=== PATIENT | female | born 1960 | race Hispanic/Latino ===

== ENCOUNTER → 2019-03-18 | Day surgery (SDC) | payer OTHER ==
[~2019-03-18] MED LIST: DEPRESSION MED PO; FENTANYL CITRATE/PF 100MCG/2 ML INJ ONE; HYOSCYAMINE 0.125 MG TAB ONE; LEVOTHYROXINE50 MCG PO; MIDAZOLAM HCL 2 MG/2 ML VIAL ONE; NORCO 7.5-3251 EACH PO
--- OUTSIDE RECORDS SUMMARY | 2019-03-18 08:42 | XMS REPORT | Continuity of Care Document ---
Author Author [employer] Organization [employer] Address Unknown Phone Unavailable Care Team Providers Care Tow Driver Name Role Phone [place] Case Information Exchange Unavailable Unavailable Problems Problem Status Onset Date Classification Date Reported Comments Source Rash Active Problem 12/16/2017 Osmin Talbot Polyarthritis Active Problem 12/16/2017 Osmin Talbot Long-term use of high-risk medication Active Problem 12/16/2017 Osmin Talbot De Quervain's tenosynovitis Active Problem 12/16/2017 Osmin Talbot Fibromyalgia Active Problem 12/16/2017 Osmin Talbot Raised antibody titer Active Problem 12/16/2017 Osmin Talbot Screening for osteoporosis Active Problem 12/16/2017 Osmin Talbot Insomnia Active Problem 03/06/2019 [facility] Vitamin D deficiency Active Problem 03/06/2019 [facility] Depression Active Problem 03/06/2019 [facility] Acquired hypothyroidism Active Problem 03/06/2019 [facility] Positive OPAL Active Problem 03/06/2019 [facility] BMI 34.0-34.9,adult Active Problem 03/06/2019 [facility] Recurrent major depressive disorder, remission status unspecified Active Problem 03/06/2019 [facility] Uses Wolof as primary spoken language Active Problem 03/06/2019 [facility] History of abnormal cervical Pap smear Active Problem 03/06/2019 [facility] Prediabetes Active Problem 03/06/2019 [facility] Inflammatory arthritis Active Problem 03/06/2019 [facility],Osmin Talbot Lupus Active Problem 03/06/2019 [facility],Osmin Talbot Anxiety Active Problem 03/06/2019 [facility] Pain in right leg Active Diagnosis 12/23/2017 [facility] Pain of left leg Active Diagnosis 12/23/2017 [facility] Other fatigue Active Diagnosis 12/23/2017 [facility] Major depressive disorder, single episode, unspecified Active Problem 02/08/2018 [facility] Screening for breast cancer Active Diagnosis 12/23/2017 [facility] Encntr for general adult medical exam w/o abnormal findings Active Diagnosis 12/23/2017 [facility] Screening for colon cancer Active Diagnosis 12/23/2017 [facility] Obstructive sleep apnea Active Problem 03/06/2019 [facility] Breast cancer screening Active Diagnosis 04/17/2018 [facility] BMI 31.0-31.9,adult Active Problem 11/25/2015 [facility] Depression Active Problem 11/25/2015 [facility] Obesity Active Problem 11/25/2015 [facility] Abnormal pap Active Diagnosis 09/11/2014 [facility] Encounter for screening mammogram for malignant neoplasm of breast Active Diagnosis 09/11/2014 [facility] Insomnia Active Problem 11/25/2015 [facility] Special screening for malignant neoplasms, colon Active Diagnosis 09/11/2014 [facility] Hyperlipidemia Active Problem 11/25/2015 [facility] Positive OPAL Active Problem 11/25/2015 [facility] Excessive daytime sleepiness Active Diagnosis 2014 [facility] Prediabetes Active Problem 11/25/2015 [facility] History of abnormal Pap smear Active Problem 11/25/2015 [facility] Anxiety Active Problem 11/25/2015 [facility] Vitamin d deficiency Active Problem 11/25/2015 [facility] Depression screening Active Diagnosis 08/12/2014 [facility] Toe pain, left Active Diagnosis 08/12/2014 [facility] Ibarra's Cyst Active Diagnosis 08/12/2014 [facility] Left knee pain Active Diagnosis 08/12/2014 [facility] Upper respiratory infection Active Diagnosis 01/27/2015 [facility] Sore throat Active Diagnosis 01/27/2015 [facility] Bacterial conjunctivitis of left eye Active Diagnosis 01/27/2015 [facility] Spondyloarthropathy Active Problem 11/25/2015 [facility] Menopause Active Problem 11/25/2015 [facility] Vertigo Active Diagnosis 11/25/2015 [facility] Dizziness Active Diagnosis 11/25/2015 [facility] Menorrhagia Active Diagnosis 11/25/2015 [facility] Encounter for screening mammogram for breast cancer Active Diagnosis 09/03/2015 [facility] Encounter for screening for malignant neoplasm of colon Active Diagnosis 09/03/2015 [facility] PTSD Active 02/13/2019 [facility] Moderate episode of recurrent major depressive disorder Active 02/13/2019 [facility] MDD , recurrent episode, moderate Active 02/13/2019 [facility] Systemic lupus erythematosus, unspecified SLE type, unspecified organ involvement status Active 02/13/2019 [facility] Inflammatory arthritis Active 02/13/2019 [facility] Fatty liver Active 02/13/2019 [facility] High risk medication use Active 02/13/2019 [facility] Long-term use of Plaquenil Active 02/13/2019 [facility] Axillary lymphadenopathy Active 02/13/2019 [facility] BMI 33.0-33.9,adult Active 02/13/2019 [facility] Medication refill Active 02/13/2019 [facility] Urticaria, unspecified Active 02/13/2019 [facility] Bilateral calcific tendinitis of shoulders Active 02/13/2019 [facility] Abnormal chest x-ray Active 02/13/2019 [facility] DDD , lumbar Active 02/13/2019 [facility] Abnormal LFTs Active 02/13/2019 [facility] Sjogren's syndrome with keratoconjunctivitis sicca Active 02/13/2019 [facility] Adjustment disorder with depressed mood Active 02/13/2019 [facility] Dietary counseling Active 02/13/2019 [facility] Exercise counseling Active 02/13/2019 [facility] BMI 34.0-34.9,adult Active 02/13/2019 [facility] Arthralgia of shoulder, unspecified laterality Active 02/13/2019 [facility] Low back pain at multiple sites Active 02/13/2019 [facility] Screening for tuberculosis Active 02/13/2019 [facility] Insomnia, unspecified type Active 02/13/2019 [facility] Patient left without being seen Active 02/13/2019 [facility] Medications Medication Details Route Status Patient Instructions Ordering Provider Order Date Source FLUoxetine (PROZAC) 20 mg capsule Take 1 capsule by mouth daily for 90 days. Oral Active 12/14/2018 [facility] hydrOXYzine (ATARAX) 50 mg tablet Take 1 tablet by mouth at bedtime nightly for 90 days. Oral Active 12/14/2018 [facility] citalopram (CELEXA) 40 mg tablet Take 1 tablet by mouth daily for 90 days. Oral No Longer Active 11/02/2018 [facility] traZODone (DESYREL) 50 mg tablet Take 50 mg by mouth at bedtime nightly. Oral No Longer Active 2018 [facility] QUEtiapine (SEROQUEL) 50 mg tablet Take 1 tablet by mouth at bedtime nightly for 90 days. Oral No Longer Active 2018 [facility] Citalopram 20 Mg Tablet Take 20 mg by mouth daily. Oral No Longer Active 07/20/2018 [facility] Citalopram 40 Mg Tablet Celexa 40 Mg Tablet Take 1 tablet by mouth daily for 60 days. Oral Active 07/20/2018 [facility] Trazodone 100 Mg Tablet Take 2 tablets by mouth at bedtime nightly for 60 days. Oral Active 07/20/2018 [facility] citalopram (CELEXA) 20 mg tablet Take 20 mg by mouth daily. Oral No Longer Active 07/20/2018 [facility] citalopram (CELEXA) 40 mg tablet Take 1 tablet by mouth daily for 60 days. Oral No Longer Active 07/20/2018 [facility] traZODone (DESYREL) 100 mg tablet Take 2 tablets by mouth at bedtime nightly for 60 days. Oral No Longer Active 07/20/2018 [facility] Methotrexate Sodium 2.5 Mg Tablet Take 1 tablet by mouth weekly. Oral Active 07/19/2018 [facility] methotrexate (RHEUMATREX) 2.5 mg tablet Take 1 tablet by mouth weekly. Oral No Longer Active 07/19/2018 [facility] Hydroxychloroquine 200 Mg Tablet Take 1 tablet by mouth daily. Oral Active 06/25/2018 [facility] hydroxychloroquine (PLAQUENIL) 200 mg tablet Take 1 tablet by mouth daily. Oral Active 06/25/2018 [facility] Metronidazole 500 Mg Tablet take 1 tablet (500 mg) by oral route every 8 hours Oral No Longer Active 04/27/2018 [facility] Ciprofloxacin 500 Mg Tablet take 1 tablet (500 mg) by oral route every 12 hours Oral No Longer Active 04/27/2018 [facility] Methotrexate Sodium 2.5 Mg Tablet Take 6 tablets by mouth weekly. Oral No Longer Active 04/27/2018 [facility] Folic Acid 1 Mg Tablet Take 1 tablet by mouth daily. Oral Active 04/27/2018 [facility] Cyclobenzaprine 5 Mg Tablet Take 1 tablet by mouth nightly at bedtime as needed for Muscle Spasms. Oral Active 04/27/2018 [facility] Naproxen 250 Mg Tablet Take 1 tablet by mouth 2 times daily (with meals). Oral Active 04/27/2018 [facility] METRONIDAZOLE 500 MG TAB take 1 tablet (500 mg) by oral route every 8 hours Oral No Longer Active 04/27/2018 [facility] CIPROFLOXACIN 500 MG TAB take 1 tablet (500 mg) by oral route every 12 hours Oral No Longer Active 04/27/2018 [facility] methotrexate (RHEUMATREX) 2.5 mg tablet Take 6 tablets by mouth weekly. Oral No Longer Active 04/27/2018 [facility] folic acid (FOLVITE) 1 mg tablet Take 1 tablet by mouth daily. Oral Active 04/27/2018 [facility] Cyclobenzaprine (FLEXERIL) 5 mg tablet Take 1 tablet by mouth nightly at bedtime as needed for Muscle Spasms. Oral Active 04/27/2018 [facility] naproxen (NAPROSYN) 250 mg tablet Take 1 tablet by mouth 2 times daily (with meals). Oral Active 04/27/2018 [facility] MetFORMIN HCl ER 1 tablet with evening meal Orally Active 750 MG Orally qd LAST REFILL, NEEDS TO BE SEEN [place] 04/09/2018 [facility] Amitriptyline 25 Mg Tablet Take 2 tablets by mouth at bedtime nightly. Oral No Longer Active 02/15/2018 [facility] amitriptyline (ELAVIL) 25 mg tablet Take 2 tablets by mouth at bedtime nightly. Oral No Longer Active 02/15/2018 [facility] Levothyroxine 50 McG Tablet Active 01/17/2018 [facility] levothyroxine (SYNTHROID) 50 mcg tablet Active 01/17/2018 [facility] Vitamin D (Ergocalciferol) 1 capsule Orally Active 63622 UNIT Orally once per week [employer] 01/16/2018 [facility] Vitamin D (Ergocalciferol) 1 capsule Orally Active 57251 UNIT Orally once per week [employer] 01/16/2018 [facility] Synthroid 1 tablet on an empty stomach in the morning Orally Active 50 MCG Orally qd LAST REFILL, NEEDS BLOOD WORK [employer] 01/16/2018 [facility] Citalopram Hydrobromide 1 tablet Orally Active 10 mg Orally Once a day [employer] 01/16/2018 [facility] Citalopram Hydrobromide 1 tablet Orally Active 20 MG Orally Once a day [place] 01/16/2018 [facility] Trazodone HCl 2 tablets Orally Active 50 mg Orally Once a day [employer] 12/19/2017 [facility] Trazodone HCl 1 tablet Orally Active 50 mg Orally once every night [employer] 12/19/2017 [facility] HydrOXYzine HCl 1 tablet as needed Orally Active 50 mg Orally at hour of sleep [employer] 08/31/2015 [facility] HydrOXYzine HCl 1 tablet as needed Orally Active 50 mg Orally at hour of sleep [facility] 08/31/2015 [facility] Ceftin 1 tablet Orally Active 500 mg Orally Twice a day [facility] 01/23/2015 [facility] Bromfed DM 10 ml as needed Orally Active 30-2-10 MG/5ML Orally every 6 hrs [facility] 01/23/2015 [facility] Polytrim 1 drop into affected eye Ophthalmic Active 58282-6.1 UNIT/ML-% Ophthalmic Six times a day [facility] 01/23/2015 [facility] Alprazolam 1 tablet Orally Active 0.5 MG Orally QHS [facility] 09/12/2014 [facility] Vitamin D (Ergocalciferol) 1 capsule Orally Active 38915 UNIT Orally once per week [facility] 09/12/2014 [facility] Medrol ([place]) as directed Orally Active 4 mg Orally as directed ~~[facility] 07/03/2014 [facility] Celebrex 1 capsule Orally Active 200 MG Orally Once a day ~~[facility] 07/02/2014 [facility] Prevacid 30 Mg Capsule,Delayed Release take 1 capsule (30 mg) by oral route once daily before a meal Oral No Longer Active 03/16/2010 [facility] PREVACID 30 MG CAP take 1 capsule (30 mg) by oral route once daily before a meal Oral No Longer Active 03/16/2010 [facility] Venlafaxine HCl ER 1 capsule with food Orally Active 75 mg Orally Once a day [facility] Mirtazapine 1 tablet before bedtime in the evening NA Active 45 [facility] Melatonin 1 capsule at bedtime as needed with food Orally Active 3 MG Orally [facility] Amitriptyline HCl 2 tablet Orally Active 25 MG Orally Once a day [facility] Citalopram Hydrobromide 1 tablet orally Active 20 mg orally Once a day [facility] Citalopram Hydrobromide TAKE 1 TABLET BY MOUTH EVERY DAY NA Active 20 MG [facility] Venlafaxine HCl ER 1 capsule with food Orally Active 75 mg Orally Once a day [facility] IBU 1 tablet Orally No Longer Active 800 MG Orally Three times a day [facility] Folic Acid 1 tablet Orally Active 1 MG Orally Once a day [facility] Methotrexate 5 capsules Orally Active 2.5 MG Orally every monday [facility] [place] 1 tablet as needed Orally Active 5-325 MG Orally every 6 hrs [facility] Melatonin 1 capsule at bedtime as needed with food Orally Active [address] [facility] Trazodone 50 Mg Tablet Take 50 mg by mouth at bedtime nightly. Oral Active [facility] Allergies, Adverse Reactions, Alerts Substance Category Reaction Severity Reaction type Status Date Reported Comments Source N.K.D.A. Adverse Reaction Info Not Available Adverse Reaction Active 04/09/2018 [facility] Immunizations No Data Provided for This Section Results Order Name Results Value Reference Range Date Interpretation Comments Source ANTI DSDNA BY EM Anti dsDNA Negative NEG Titer 09/19/2018 [facility] SED RATE Sed Rate 43 <30 mm/Hr 09/18/2018 [facility] SED RATE Lab Interpretation Abnormal 09/18/2018 [facility] C-REACTIVE PROT C-Reactive Prot 0.8 <10 09/18/2018 [facility] COMPLEMENT C3 Complement C3 183.1 87 - 200 09/18/2018 [facility] COMPLEMENT C4 Complement C4 47.9 19 - 52 09/18/2018 [facility] LIVER PROFILE <td ID="[id number]">Protein, Total, Serum</td><td><span style="flagData">8.6</span><span style="flagData"> (H)</span></td><td>6.0 - 8.3 g/dL</td><td> MAIN-STATION 1</td><td ID="[id number]"/> 8.6 6 - 8.3 09/18/2018 [facility] LIVER PROFILE <td ID="[id number]">Albumin</td><td>4.4</td><td>3.7 - 5.3 g/dL</td><td>BT MAIN-STATION 1</td><td ID="[id number]"/> 4.4 3.7 - 5.3 09/18/2018 [facility] LIVER PROFILE <td ID="[id number]">Bilirubin, Total</td><td>0.3</td><td>0.2 - 1.2 mg/dL</td><td>BT MAIN-STATION 1</td><td ID="[id number]"/> 0.3 0.2 - 1.2 09/18/2018 [facility] LIVER PROFILE <td ID="[id number]">Alkaline Phosphatase, S</td><td>104</td><td>34 - 104 U/L</td><td>BT MAIN-STATION 1</td><td ID="[id number]"/> 104 34 - 104 09/18/2018 [facility] LIVER PROFILE <td ID="[id number]">AST (SGOT)</td><td>21</td><td>13 - 39 U/L</td><td>BT MAIN-STATION 1</td><td ID="[id number]"/> 21 13 - 39 09/18/2018 [facility] LIVER PROFILE <td ID="[id number]">ALT</td><td>24</td><td>7 - 52 U/L</td><td>BT MAIN-STATION 1</td><td ID="[id number]"/> 24 7 - 52 09/18/2018 [facility] LIVER PROFILE <td ID="[id number]">D Bilirubin</td><td>0.1</td><td>0.0 - 0.2 mg/dL</td><td>BT MAIN-STATION 1</td><td ID="[id number]"/> 0.1 0 - 0.2 09/18/2018 [facility] LIVER PROFILE Lab Interpretation Abnormal 09/18/2018 [facility] T PROT/CREA RATIO,UR Creatinine, Urine 96.5 20 - 320 09/17/2018 [facility] T PROT/CREA RATIO,UR T Prot, Ur 0.25 09/17/2018 [facility] T PROT/CREA RATIO,UR T Prot/Crea Ratio,Ur 0.26 0.0 - 0.5 09/17/2018 [facility] SJOGREN'S AB Anti SS/A >8.0 Reference range: 0.0 to 0.9 Unit: AI 07/06/2018 [facility] SJOGREN'S AB Anti SS/B >8.0 Reference range: 0.0 to 0.9 Unit: AI 07/06/2018 [facility] ANTI DSDNA BY CRITHIDIA Anti dsDNA Negative NEG Titer 07/06/2018 [facility] C-REACTIVE PROT C-Reactive Prot 0.7 <10 07/05/2018 [facility] COMPLEMENT C3 Complement C3 175.4 87 - 200 07/05/2018 [facility] COMPLEMENT C4 Complement C4 41.0 19 - 52 07/05/2018 [facility] RA FACTOR RA Factor 12 <14 IU/mL 07/05/2018 [facility] CBC/DIFF <td ID="[id number]">WBC</td><td>7.2</td><td>4.5 - 11.0 K/uL</td><td>BT MAIN-STATION 2</td><td ID="[id number]"/> 7.2 4.5 - 11 07/05/2018 [facility] CBC/DIFF <td ID="[id number]">RBC</td><td>4.43</td><td>4.20 - 5.40 M/uL</td><td>BT MAIN-STATION 2</td><td ID="[id number]"/> 4.43 4.20 - 5.40 07/05/2018 [facility] CBC/DIFF <td ID="[id number]">Hemoglobin</td><td>13.2</td><td>12.0 - 16.0 g/dL</td><td>BT MAIN-STATION 2</td><td ID="[id number]"/> 13.2 12 - 16 07/05/2018 [facility] CBC/DIFF <td ID="[id number]">Hematocrit</td><td>39.4</td><td>37.0 - 47.0 %</td><td>BT MAIN-STATION 2</td><td ID="[id number]"/> 39.4 37 - 47 07/05/2018 [facility] CBC/DIFF <td ID="[id number]">MCV</td><td>89</td><td>82 - 92 fL</td><td>BT MAIN-STATION 2</td><td ID="[id number]"/> 89 82 - 92 07/05/2018 [facility] CBC/DIFF <td ID="[id number]">MCH</td><td>29.8</td><td>27.0 - 32.0 pg</td><td>BT MAIN-STATION 2</td><td ID="[id number]"/> 29.8 27 - 32 07/05/2018 [facility] CBC/DIFF <td ID="[id number]">MCHC</td><td>33.5</td><td>32.0 - 36.0 g/dL</td><td>BT MAIN-STATION 2</td><td ID="[id number]"/> 33.5 32 - 36 07/05/2018 [facility] CBC/DIFF <td ID="[id number]">RDW</td><td>45.7</td><td>36.4 - 46.3 fL</td><td>BT MAIN-STATION 2</td><td ID="[id number]"/> 45.7 36.4 - 46.3 07/05/2018 [facility] CBC/DIFF <td ID="[id number]">Platelets</td><td>244</td><td>150 - 400 K/uL</td><td>BT MAIN-STATION 2</td><td ID="[id number]"/> 244 150 - 400 07/05/2018 [facility] CBC/DIFF <td ID="[id number]">Mean Platelet Volume</td><td>11.6</td><td>9.4 - 12.4 fL</td><td>BT MAIN-STATION 2</td><td ID="[id number]"/> 11.6 9.4 - 12.4 07/05/2018 [facility] CBC/DIFF Percent NRBC 0.0 07/05/2018 [facility] CBC/DIFF Absolute NRBC 0.00 07/05/2018 [facility] CBC/DIFF <td ID="[id number]">Neutrophils</td><td>70.0</td><td>34.0 - 70.0 %</td><td>BT MAIN-STATION 2</td><td ID="[id number]"/> 70.0 34 - 70 07/05/2018 [facility] CBC/DIFF <td ID="[id number]">Lymphs</td><td>22.7</td><td>20.0 - 50.0 %</td><td>BT MAIN-STATION 2</td><td ID="[id number]"/> 22.7 20 - 50 07/05/2018 [facility] CBC/DIFF <td ID="[id number]">Monocytes</td><td>5.3</td><td>5.0 - 12.0 %</td><td>BT MAIN-STATION 2</td><td ID="[id number]"/> 5.3 5 - 12 07/05/2018 [facility] CBC/DIFF <td ID="[id number]">Eos</td><td>1.5</td><td>0.7 - 5.0 %</td><td>BT MAIN-STATION 2</td><td ID="[id number]"/> 1.5 0.7 - 5 07/05/2018 [facility] CBC/DIFF <td ID="[id number]">Basos</td><td>0.4</td><td>0.1 - 1.2 %</td><td>BT MAIN-STATION 2</td><td ID="[id number]"/> 0.4 0.1 - 1.2 07/05/2018 [facility] CBC/DIFF Immature Granulocytes 0.1 0.0 - 0.5 07/05/2018 [facility] CBC/DIFF Neutrophils (Absolute) 5.05 1.56 - 6.13 07/05/2018 [facility] CBC/DIFF Lymphs (Absolute) 1.64 1.18 - 3.74 07/05/2018 [facility] CBC/DIFF Monocytes(Absolute) 0.38 0.24 - 0.36 07/05/2018 [facility] CBC/DIFF Eos (Absolute) 0.11 0.04 - 0.36 07/05/2018 [facility] CBC/DIFF Baso (Absolute) 0.03 0.01 - 0.08 07/05/2018 [facility] CBC/DIFF Immature Grans (Abs) 0.01 0 - 0.03 07/05/2018 [facility] CBC/DIFF Lab Interpretation Abnormal 07/05/2018 [facility] LIVER PROFILE T Protein 8.2 6 - 8.3 07/05/2018 [facility] LIVER PROFILE Albumin 4.3 3.7 - 5.3 07/05/2018 [facility] LIVER PROFILE T Bilirubin 0.5 0.2 - 1.2 07/05/2018 [facility] LIVER PROFILE Alk Phos 111 34 - 104 07/05/2018 [facility] LIVER PROFILE AST 27 13 - 39 07/05/2018 [facility] LIVER PROFILE ALT 26 7 - 52 07/05/2018 [facility] LIVER PROFILE D Bilirubin 0.1 0 - 0.2 07/05/2018 [facility] LIVER PROFILE Lab Interpretation Abnormal 07/05/2018 [facility] UREA NITROGEN/CREA <td ID="[id number]">BUN</td><td>18</td><td>7 - 25 mg/dL</td><td>BT MAIN-STATION 1</td><td ID="[id number]"/> 18 7 - 25 07/05/2018 [facility] UREA NITROGEN/CREA <td ID="[id number]">Creatinine</td><td>0.60</td><td>0.6 - 1.2 mg/dL</td><td>BT MAIN-STATION 1</td><td ID="[id number]"/> 0.60 0.6 - 1.2 07/05/2018 [facility] UREA NITROGEN/CREA GFR, Estimated >60 mL/min/1.73 m2 07/05/2018 [facility] UREA NITROGEN/CREA eGFR If Africn Am >60 mL/min/1.73 m2 07/05/2018 [facility] CCP IGG ABS CCP Abs IgG/IgA 9 Reference range: 0 to 19 Unit: units (note) Negative 59 05/07/2018 [facility] OPAL OPAL Screen Positive NEG 05/05/2018 [facility] OPAL OPAL Pattern SSA/Ro present, not titered Pattern 05/05/2018 [facility] OPAL Lab Interpretation Abnormal 05/05/2018 [facility] VIT D, 25-HYDROXY Vit D, 25-Hydroxy 34.0 30 - 100 05/04/2018 Vitamin D deficiency has been defined by the [place] of [employer] and
Endocrine Society guideline as a level of serum 25-OH Vitamin D less than 20
ng/mL. The Endocrine Society further defines Vitamin D insufficiency as a
level between 21 and 29 ng/mL and sufficiency as a level between 30 and 100
ng/mL.

[facility] HEPATITIS PANEL <td ID="[id number]">HCV IgG</td><td>Negative</td><td>NEG</td><td>BT MAIN-STATION 3</td><td ID="[id number]"/> Negative NEG 05/03/2018 [facility] HEPATITIS PANEL <td ID="[id number]">HBsAg</td><td>Negative</td><td>NEG</td><td>BT MAIN-STATION 3</td><td ID="[id number]"/> Negative NEG 05/03/2018 [facility] HEPATITIS PANEL <td ID="[id number]">HAV, IgM</td><td>Negative</td><td>NEG</td><td>BT MAIN-STATION 3</td><td ID="[id number]"/> Negative NEG 05/03/2018 [facility] HEPATITIS PANEL <td ID="[id number]">HBcAb, IgM</td><td>Negative</td><td>NEG</td><td>BT MAIN-STATION 3</td><td ID="[id number]"/> Negative NEG 05/03/2018 [facility] T PROT/CREA RATIO,UR Creatinine, Ur 114.2 20 - 320 05/03/2018 [facility] T PROT/CREA RATIO,UR T Prot, Ur 0.09 05/03/2018 [facility] T PROT/CREA RATIO,UR T Prot/Crea Ratio,Ur 0.08 0.0 - 0.5 05/03/2018 [facility] COMPREHENSIVE METABOLIC PANEL(DBIL NOT INCLUDED) <td ID="[id number]">Albumin</td><td>4.6</td><td>3.7 - 5.3 g/dL</td><td>BT MAIN-STATION 1</td><td ID="[id number]"/> 4.6 3.7 - 5.3 05/03/2018 [facility] COMPREHENSIVE METABOLIC PANEL(DBIL NOT INCLUDED) <td ID="[id number]">Calcium</td><td>9.0</td><td>8.6 - 10.3 mg/dL</td><td>BT MAIN-STATION 1</td><td ID="[id number]"/> 9.0 8.6 - 10.3 05/03/2018 [facility] COMPREHENSIVE METABOLIC PANEL(DBIL NOT INCLUDED) <td ID="[id number]">CO2</td><td>31</td><td>21 - 31 mmol/L</td><td>BT MAIN-STATION 1</td><td ID="[id number]"/> 31 21 - 31 05/03/2018 [facility] COMPREHENSIVE METABOLIC PANEL(DBIL NOT INCLUDED) <td ID="[id number]">Chloride</td><td>99</td><td>98 - 107 mmol/L</td><td>BT MAIN-STATION 1</td><td ID="[id number]"/> 99 98 - 107 05/03/2018 [facility] COMPREHENSIVE METABOLIC PANEL(DBIL NOT INCLUDED) <td ID="[id number]">Creatinine</td><td><span style="flagData">0.50</span><span style="flagData"> (L)</span></td><td>0.6 - 1.2 mg/dL</td><td>BT MAIN-STATION 1</td><td ID="[id number]"/> 0.50 0.6 - 1.2 05/03/2018 [facility] COMPREHENSIVE METABOLIC PANEL(DBIL NOT INCLUDED) <td ID="[id number]">Glucose</td><td>84</td><td>70 - 110 mg/dL</td><td>BT MAIN-STATION 1</td><td ID="[id number]"/> 84 70 - 110 05/03/2018 [facility] COMPREHENSIVE METABOLIC PANEL(DBIL NOT INCLUDED) <td ID="[id number]">Alkaline Phosphatase, S</td><td>90</td><td>34 - 104 U/L</td><td>BT MAIN-STATION 1</td><td ID="[id number]"/> 90 34 - 104 05/03/2018 [facility] COMPREHENSIVE METABOLIC PANEL(DBIL NOT INCLUDED) <td ID="[id number]">Potassium</td><td>4.6</td><td>3.5 - 5.1 mmol/L</td><td>BT MAIN-STATION 1</td><td ID="[id number]"/> 4.6 3.5 - 5.1 05/03/2018 [facility] COMPREHENSIVE METABOLIC PANEL(DBIL NOT INCLUDED) <td ID="[id number]">Sodium</td><td>139</td><td>136 - 145 mmol/L</td><td>BT MAIN-STATION 1</td><td ID="[id number]"/> 139 136 - 145 05/03/2018 [facility] COMPREHENSIVE METABOLIC PANEL(DBIL NOT INCLUDED) <td ID="[id number]">ALT</td><td><span style="flagData">66</span><span style="flagData"> (H)</span></td><td>7 - 52 U/L</td><td>BT MAIN-STATION 1</td><td ID="[id number]"/> 66 7 - 52 05/03/2018 [facility] COMPREHENSIVE METABOLIC PANEL(DBIL NOT INCLUDED) <td ID="[id number]">AST (SGOT)</td><td><span style="flagData">55</span><span style="flagData"> (H)</span></td><td>13 - 39 U/L</td><td> MAIN-STATION 1</td><td ID="[id number]"/> 55 13 - 39 05/03/2018 [facility] COMPREHENSIVE METABOLIC PANEL(DBIL NOT INCLUDED) <td ID="[id number]">BUN</td><td>7</td><td>7 - 25 mg/dL</td><td> MAIN-STATION 1</td><td ID="[id number]"/> 7 7 - 25 05/03/2018 [facility] COMPREHENSIVE METABOLIC PANEL(DBIL NOT INCLUDED) <td ID="[id number]">Bilirubin, Total</td><td>0.6</td><td>0.2 - 1.2 mg/dL</td><td> MAIN-STATION 1</td><td ID="[id number]"/> 0.6 0.2 - 1.2 05/03/2018 [facility] COMPREHENSIVE METABOLIC PANEL(DBIL NOT INCLUDED) <td ID="[id number]">Protein, Total, Serum</td><td>8.1</td><td>6.0 - 8.3 g/dL</td><td> MAINSTATION 1</td><td ID="[id number]"/> 8.1 6 - 8.3 05/03/2018 [facility] COMPREHENSIVE METABOLIC PANEL(DBIL NOT INCLUDED) GFR, Estimated >60 mL/min/1.73 m2 05/03/2018 [facility] COMPREHENSIVE METABOLIC PANEL(DBIL NOT INCLUDED) eGFR If Africn Am >60 mL/min/1.73 m2 05/03/2018 [facility] COMPREHENSIVE METABOLIC PANEL(DBIL NOT INCLUDED) Anion Gap 9 05/03/2018 [facility] COMPREHENSIVE METABOLIC PANEL(DBIL NOT INCLUDED) Lab Interpretation Abnormal 05/03/2018 [facility] TSH <td ID="[id number]">TSH</td><td>1.87</td><td>0.57 - 3.74 uIU/mL</td><td>BT MAIN-STATION 1</td><td ID="[id number]"/> 1.87 0.57 - 3.74 03/30/2018 [facility] Pathology Reports No Data Provided for This Section Diagnostic Reports Report Value Date Source CT CHEST W CONTRAST IMPRESSION: 1.Lungs are clear.2.Nonspecific mildly enlarged left axillary lymph nodes.3.Hepatic steatosis. Signed By: Pierce Crews M.D., 07/23/2018 10:38 AM EXAM:CT CHEST W CONTRAST DATE: 10:02 AM INDICATION: sle with abnormal chest x ray ADDITIONAL INFORMATION:None. TECHNIQUE: Post IV contrast CT chest acquisition with sagittal andcoronal reformats and axial MIPPED images rendered. COMPARISON: Chest x-ray 05/03/2018 DISCUSSION: Visualized lower neck. Unremarkable. Thyroid.The visible portions are unremarkable. Aorta.No evidence of aortic aneurysm or dissection. Mild aorticatherosclerotic calcifications. Pulmonary arteries.Pulmonary arteries are grossly unremarkable. Trachea and proximal airways.Trachea and proximal airways are patent. Lungs. Unremarkable. Thoracic lymph nodes.No adenopathy is seen. Nonspecific mildlyenlarged left axillary lymph nodes measuring up to 1.2 cm. Visualized subdiaphragmatic structures.Hepatic steatosis. Soft tissues.Unremarkable. Regional Skeleton.No lytic or blastic lesions. Interface, Rad/Mammog In - 07/23/2018 10:43 AM DIRECTOR PROSPECT EXAM: CT CHEST W CONTRAST DATE: 07/23/2018 10:02 AM INDICATION: sle with abnormal chest x ray ADDITIONAL INFORMATION:None. TECHNIQUE: Post IV contrast CT chest acquisition with sagittal and coronal reformats and axial MIPPED images rendered. COMPARISON: Chest x-ray 05/03/2018 DISCUSSION: Visualized lower neck. Unremarkable. Thyroid. The visible portions are unremarkable. Aorta.No evidence of aortic aneurysm or dissection. Mild aortic atherosclerotic calcifications. Pulmonary arteries.Pulmonary arteries are grossly unremarkable. Trachea and proximal airways.Trachea and proximal airways are patent. Lungs. Unremarkable. Thoracic lymph nodes. No adenopathy is seen. Nonspecific mildly enlarged left axillary lymph nodes measuring up to 1.2 cm. Visualized subdiaphragmatic structures. Hepatic steatosis. Soft tissues. Unremarkable. Regional Skeleton. No lytic or blastic lesions. IMPRESSION IMPRESSION: 1. Lungs are clear. 2. Nonspecific mildly enlarged left axillary lymph nodes. 3. Hepatic steatosis. Signed By: Pierce Crews M.D., 07/23/2018 10:38 AM 07/23/2018 [facility] XRAY SHOULDER 2 VIEWS MIN IMPRESSION: 1.No acute radiographic abnormality.2.Calcific tendinopathy of the rotator cuff. Dictated By: Radha Keating MD, 05/03/2018 11:40 AM I have reviewed the study and agree with the findings in this report. Signed By: Rafael Baker DO, 05/03/2018 2:54 PM EXAM: RIGHT XRAY SHOULDER 2 VIEWS MIN CLINICAL INDICATION:pain COMPARISON: None. DISCUSSION:No fracture or dislocation. Mild degenerative changes of the shoulder and acromioclavicular joint.Calcific tendinopathy the rotator cuff. Interface, Rad/Mammog In - 05/03/2018 2:59 PM CDTEXAM: RIGHT XRAY SHOULDER 2 VIEWS MIN CLINICAL INDICATION: pain COMPARISON: None. DISCUSSION: No fracture or dislocation. Mild degenerative changes of the shoulder and acromioclavicular joint. Calcific tendinopathy the rotator cuff. IMPRESSION IMPRESSION: 1. No acute radiographic abnormality. 2. Calcific tendinopathy of the rotator cuff. Dictated By: Radha Keating MD, 05/03/2018 11:40 AM I have reviewed the study and agree with the findings in this report. Signed By: Rafael Baker DO, 05/03/2018 2:54 PM 05/03/2018 [facility] XRAY SPINE LUMBOSACRAL AP-LAT IMPRESSION:1.No acute radiographic abnormality. 2.Mild degenerative changes at L5-S1. Dictated By: Radha Keating MD, 05/03/2018 11:38 AM I have reviewed the study and agree with the findings in this report. Signed By: Rafael Baker DO, 05/03/2018 2:54 PM Lumbar Spine Radiographs - 3 view(s) HISTORY:back pain COMPARISON: None DISCUSSION:Bone:Osseous structures are partially obscured by stool and bowel gas .Five nonrib-bearing lumbar vertebral bodies.Normal alignment.No displaced fracture or compression deformity. Discs:Mild disc space narrowing at L5-S1. Joints:Mild degenerative changes of the L5-S1 facets. Interface, Rad/Mammog In - 05/03/2018 2:59 PM CDTLumbar Spine Radiographs - 3 view(s) HISTORY: back pain COMPARISON: None DISCUSSION: Bone: Osseous structures are partially obscured by stool and bowel gas. Five nonrib-bearing lumbar vertebral bodies. Normal alignment. No displaced fracture or compression deformity. Discs: Mild disc space narrowing at L5-S1. Joints: Mild degenerative changes of the L5-S1 facets. IMPRESSION IMPRESSION: 1. No acute radiographic abnormality. 2. Mild degenerative changes at L5-S1. Dictated By: Radha Keating MD, 05/03/2018 11:38 AM I have reviewed the study and agree with the findings in this report. Signed By: Rafael Baker DO, 05/03/2018 2:54 PM 05/03/2018 [facility] XRAY CHEST 2 VIEWS IMPRESSION: 1.Persistent mild right medial infrahilar opacities, likelyatelectasis/scarring.2.No consolidations, cavitary lesions, pleural effusions. CT could beobtained for further evaluation if indicated. Dictated By: Tay Paul MD, 05/03/2018 11:45 AM I have reviewed the study and agree with the findings in this report. Signed By: Jose Negron MD, 05/03/2018 11:46 AM EXAMINATION:XRAY CHEST 2 VIEWS INDICATION: screen tb COMPARISON:06/24/2012 FINDINGS: Devices, Lines, and Tubes: None. Heart and Mediastinum: Unremarkable. Lungs and Pleura: Persistent mild infrahilar opacities in the rightmedial lung. Few bilateral scattered calcified granulomas, the greatestis noted to be in the left upper lung. No pneumothoraces. Bones and Soft Tissues: Moderate degenerative changes of the superiorcostochondral joints bilaterally. Moderate anterior osteophytosis of themid thoracic spine. Interface, Rad/Mammog In - 05/03/2018 11:52 AM CDTEXAMINATION: XRAY CHEST 2 VIEWS INDICATION: screen tb COMPARISON: 06/24/2012 FINDINGS: Devices, Lines, and Tubes: None. Heart and Mediastinum: Unremarkable. Lungs and Pleura: Persistent mild infrahilar opacities in the right medial lung. Few bilateral scattered calcified granulomas, the greatest is noted to be in the left upper lung. No pneumothoraces. Bones and Soft Tissues: Moderate degenerative changes of the superior costochondral joints bilaterally. Moderate anterior osteophytosis of the mid thoracic spine. IMPRESSION IMPRESSION: 1. Persistent mild right medial infrahilar opacities, likely atelectasis/scarring. 2. No consolidations, cavitary lesions, pleural effusions. CT could be obtained for further evaluation if indicated. Dictated By: Tay Paul MD, 05/03/2018 11:45 AM I have reviewed the study and agree with the findings in this report. Signed By: Jose Negron MD, 05/03/2018 11:46 AM 05/03/2018 [facility] Consultation Notes No Data Provided for This Section Discharge Summaries No Data Provided for This Section History and Physicals No Data Provided for This Section Vital Signs Vital Sign Value Date Comments Source Systolic (mm Hg) 99 12/14/2018 [facility] Diastolic (mm Hg) 50 12/14/2018 [facility] Heart Rate 56 12/14/2018 [facility] Temperature Oral (F) 36.78 Nataliia 12/14/2018 [facility] Respitory Rate 18 12/14/2018 [facility] Height 154.9 cm 12/14/2018 [facility] Weight 86.637 12/14/2018 [facility] Systolic (mm Hg) 99 07/20/2018 [facility] Diastolic (mm Hg) 46 07/20/2018 [facility] Heart Rate 58 07/20/2018 [facility] Temperature Oral (F) 36.83 Nataliia 07/20/2018 [facility] Respitory Rate 18 07/20/2018 [facility] Height 154.9 cm 07/20/2018 [facility] Weight 78.019 07/20/2018 [facility] BMI Calculated 32.50 07/20/2018 [facility] Weight 185 04/09/2018 [facility] Height 61 04/09/2018 [facility] Temperature Oral (F) 98.4 F 04/09/2018 [facility] Heart Rate 53 04/09/2018 [facility] Diastolic (mm Hg) 62 04/09/2018 [facility] Systolic (mm Hg) 96 04/09/2018 [facility] Weight 178 02/22/2018 [facility] Height 61 02/22/2018 [facility] Heart Rate 56 02/22/2018 [facility] Diastolic (mm Hg) 60 02/22/2018 [facility] Systolic (mm Hg) 98 02/22/2018 [facility] Weight 179 01/16/2018 [facility] Height 61 01/16/2018 [facility] Temperature Oral (F) 98.2 F 01/16/2018 [facility] Heart Rate 59 01/16/2018 [facility] Diastolic (mm Hg) 58 01/16/2018 [facility] Systolic (mm Hg) 96 01/16/2018 [facility] Weight 173 12/19/2017 [facility] Height 61 12/19/2017 [facility] Temperature Oral (F) 98.1 F 12/19/2017 [facility] Heart Rate 55 12/19/2017 [facility] Diastolic (mm Hg) 62 12/19/2017 [facility] Systolic (mm Hg) 118 12/19/2017 [facility] Weight 164 11/23/2015 [facility] Height 61 11/23/2015 [facility] Temperature Oral (F) 98.0 F 11/23/2015 [facility] Heart Rate 60 11/23/2015 [facility] Diastolic (mm Hg) 60 11/23/2015 [facility] Systolic (mm Hg) 112 11/23/2015 [facility] Weight 159 09/02/2015 [facility] Height 61 09/02/2015 [facility] Heart Rate 64 09/02/2015 [facility] Diastolic (mm Hg) 60 09/02/2015 [facility] Systolic (mm Hg) 102 09/02/2015 [facility] Weight 160 08/31/2015 [facility] Height 61 08/31/2015 [facility] Heart Rate 63 08/31/2015 [facility] Diastolic (mm Hg) 58 08/31/2015 [facility] Systolic (mm Hg) 98 08/31/2015 [facility] Weight 162 01/23/2015 [facility] Height 61 01/23/2015 [facility] Heart Rate 60 01/23/2015 [facility] Diastolic (mm Hg) 64 01/23/2015 [facility] Systolic (mm Hg) 110 01/23/2015 [facility] Weight 168 09/12/2014 [facility] Height 61 09/12/2014 [facility] Heart Rate 60 09/12/2014 [facility] Diastolic (mm Hg) 62 09/12/2014 [facility] Systolic (mm Hg) 100 09/12/2014 [facility] Weight 169 09/01/2014 [facility] Height 61 09/01/2014 [facility] Heart Rate 58 09/01/2014 [facility] Diastolic (mm Hg) 50 09/01/2014 [facility] Systolic (mm Hg) 98 09/01/2014 [facility] Weight 165 07/02/2014 [facility] Height 61 07/02/2014 [facility] Heart Rate 62 07/02/2014 [facility] Diastolic (mm Hg) 60 07/02/2014 [facility] Systolic (mm Hg) 124 07/02/2014 [facility] Encounters Location Location Details Encounter Type Encounter Number Reason For Visit Attending Provider ADM Date DC Date Status Source [facility] LEFT KNEE PAIN/ SWELLLING [id number] 07/02/2014 07/02/2014 [facility] LEFT KNEE PAIN/ SWELLLING [id number] 07/02/2014 07/02/2014 [facility] LEFT KNEE PAIN/ SWELLLING [id number] 07/02/2014 07/02/2014 [facility] LEFT KNEE PAIN/ SWELLLING [id number] 07/02/2014 07/02/2014 [facility] LEFT KNEE PAIN/ SWELLLING [id number] 07/02/2014 07/02/2014 [facility] LEFT KNEE PAIN/ SWELLLING [id number] 07/02/2014 07/02/2014 [facility] LEFT KNEE PAIN/ SWELLLING [id number] 07/02/2014 07/02/2014 [facility] LEFT KNEE PAIN/ SWELLLING [id number] 07/02/2014 07/02/2014 [facility] LEFT KNEE PAIN/ SWELLLING [id number] 07/02/2014 07/02/2014 [facility] LEFT KNEE PAIN/ SWELLLING [id number] 07/02/2014 07/02/2014 [facility] Needs call back from Medical Staff [id number] 07/03/2014 07/03/2014 [facility] Needs call back from Medical Staff [id number] 07/03/2014 07/03/2014 [facility] Needs call back from Medical Staff [id number] 07/03/2014 07/03/2014 [facility] Needs call back from Medical Staff [id number] 07/03/2014 07/03/2014 [facility] Needs call back from Medical Staff [id number] 07/03/2014 07/03/2014 [facility] Needs call back from Medical Staff [id number] 07/03/2014 07/03/2014 [facility] Needs call back from Medical Staff [id number] 07/03/2014 07/03/2014 [facility] Needs call back from Medical Staff [id number] 07/03/2014 07/03/2014 [facility] Needs call back from Medical Staff [id number] 07/03/2014 07/03/2014 [facility] Needs call back from Medical Staff [id number] 07/03/2014 07/03/2014 [facility] Needs referral [id number] 07/09/2014 07/09/2014 [facility] Needs referral [id number] 07/09/2014 07/09/2014 [facility] Needs referral [id number] 07/09/2014 07/09/2014 [facility] Needs referral [id number] 07/09/2014 07/09/2014 [facility] Needs referral [id number] 07/09/2014 07/09/2014 [facility] Needs referral [id number] 07/09/2014 07/09/2014 [facility] Needs referral [id number] 07/09/2014 07/09/2014 [facility] Needs referral [id number] 07/09/2014 07/09/2014 [facility] Needs referral [id number] 07/09/2014 07/09/2014 [facility] Needs referral [id number] 07/09/2014 07/09/2014 [facility] WWE [id number] 09/01/2014 09/01/2014 [facility] WWE [id number] 09/01/2014 09/01/2014 [facility] WWE [id number] 09/01/2014 09/01/2014 [facility] WWE [id number] 09/01/2014 09/01/2014 [facility] WWE [id number] 09/01/2014 09/01/2014 [facility] WWE [id number] 09/01/2014 09/01/2014 [facility] WWE [id number] 09/01/2014 09/01/2014 [facility] LAB RESULTS [id number] 09/12/2014 09/12/2014 [facility] LAB RESULTS [id number] 09/12/2014 09/12/2014 [facility] LAB RESULTS [id number] 09/12/2014 09/12/2014 [facility] LAB RESULTS [id number] 09/12/2014 09/12/2014 [facility] LAB RESULTS [id number] 09/12/2014 09/12/2014 [facility] LAB RESULTS [id number] 09/12/2014 09/12/2014 [facility] STUDY QUESTIONAIRE [id number] 09/12/2014 09/12/2014 [facility] STUDY QUESTIONAIRE [id number] 09/12/2014 09/12/2014 [facility] STUDY QUESTIONAIRE [id number] 09/12/2014 09/12/2014 [facility] STUDY QUESTIONAIRE [id number] 09/12/2014 09/12/2014 [facility] STUDY QUESTIONAIRE [id number] 09/12/2014 09/12/2014 [facility] STUDY QUESTIONAIRE [id number] 09/12/2014 09/12/2014 [facility] Unknown [id number] 10/07/2014 10/07/2014 [facility] Unknown [id number] 10/07/2014 10/07/2014 [facility] Unknown [id number] 10/07/2014 10/07/2014 [facility] Unknown [id number] 10/07/2014 10/07/2014 [facility] H A/ SORE THROAT [id number] 12/26/2014 12/26/2014 [facility] H A/ SORE THROAT [id number] 12/26/2014 12/26/2014 [facility] H A/ SORE THROAT [id number] 12/26/2014 12/26/2014 [facility] H A/ SORE THROAT [id number] 12/26/2014 12/26/2014 [facility] left eye [id number] 01/23/2015 01/23/2015 [facility] left eye [id number] 01/23/2015 01/23/2015 [facility] left eye [id number] 01/23/2015 01/23/2015 [facility] left eye [id number] 01/23/2015 01/23/2015 [facility] insomnia and stress, headaches [id number] 08/31/2015 08/31/2015 [facility] insomnia and stress, headaches [id number] 08/31/2015 08/31/2015 [facility] insomnia and stress, headaches [id number] 08/31/2015 08/31/2015 [facility] physical, wwe [id number] 09/02/2015 09/02/2015 [facility] physical, wwe [id number] 09/02/2015 09/02/2015 [facility] Dizziness, loosing balance when trying to stand up [id number] 11/23/2015 11/23/2015 [facility] BT CUSTOMER RELATIONS SERVICES Telephone [id number] Courtney Riley 02/15/2018 [facility] Mental Health Services [facility] Office Visit [id number] Kathy Nettles MD 02/15/2018 02/15/2018 [facility] LAB[facility]ATORY [facility] Hospital Encounter [id number] Kathy Nettles MD 03/29/2018 03/30/2018 [facility] Mental Health Services BT Office Visit [id number] Kathy Nettles MD 03/29/2018 03/29/2018 [facility] Mental Health Services BT Refill [id number] Kathy Nettles MD 04/17/2018 [facility] Rheumatology [place] Office Visit [id number] Chani Rogers MD 04/27/2018 04/27/2018 [facility] Radiology [place] Ancillary Procedure [id number] Leigh Ann Correa MD 05/03/2018 05/03/2018 [facility] Rheumatology [place] Office Visit [id number] Chani Rogers MD 06/25/2018 06/25/2018 [facility] Family Practice [facility] Refill [id number] Aracely Carter DECISION SCIENCE ANALYST 07/18/2018 [facility] [place] [facility] Psychiatry Orders Only [id number] Delaney Reyes MD 07/20/2018 [facility] CUSTOMER RELATIONS SERVICES Telephone [id number] Yaya Gonzalez 07/20/2018 [facility] [place] [facility] - Psychiatry Office Visit [id number] Delaney Reyes MD 07/20/2018 07/20/2018 [facility] CT Scan [facility] Encounter [id number] Chani Rogers MD 07/23/2018 07/24/2018 [facility] Rheumatology [place] Telephone [id number] Chani Villareal 07/30/2018 [facility] Travel [id number] 08/22/2018 [facility] PULMONARY SERVICES Hospital Encounter [id number] Chani Rogers MD 08/22/2018 08/23/2018 [employer] [id number] 2018 [facility] [place] [facility] - Psychiatry Office Visit [id number] Delaney Reyes MD 2018 2018 [facility] Behavioral Health/Counseling [place] Office Visit [id number] Delaney Reyes MD 2018 2018 [employer] [id number] 09/17/2018 [facility] Rheumatology [place] Office Visit [id number] Chani Rogers MD 09/17/2018 09/17/2018 [facility] [place] [facility] - Psychiatry Telephone [id number] Delaney Reyes MD 10/31/2018 [facility] [place] [facility] Psychiatry Refill [id number] Delaney Reyes MD 11/02/2018 [facility] CUSTOMER RELATIONS SERVICES Telephone [id number] Sanjay Collazo 12/14/2018 [employer] [id number] 12/14/2018 [facility] [place] [facility] - Psychiatry Office Visit [id number] Delaney Reyes MD 12/14/2018 12/14/2018 [employer] [id number] 12/18/2018 [facility] Behavioral Health/Counseling [place] Office Visit [id number] Maria Del Rosario [place] 12/18/2018 12/18/2018 [facility] Procedures Procedure Code Date Perfomer Comments Source SED RATE 24958 09/17/2018 [facility] C-REACTIVE PROT 20252 09/17/2018 [facility] LIVER PROFILE 90858 09/17/2018 [facility] ANTI DSDNA BY CRITHIDIA [id number] 09/17/2018 [facility] COMPLEMENT C3 09914 09/17/2018 [facility] COMPLEMENT C4 16709 09/17/2018 [facility] TOTAL PROTEIN/CREATININE RATIO, URINE 93722 09/17/2018 [facility] PULMONARY - 6 MINUTE WALK EXERCISE TEST - COMPLEX 25873 08/22/2018 Unknown [facility] PULMONARY FUNCTION TEST 03913 08/22/2018 Unknown [facility] CT CHEST W CONTRAST 18072 07/23/[address] [facility] [address] CHEST W CONTRAST 06533 07/23/2018 [facility] COMPLEMENT C4 27602 07/04/2018 [facility] COMPLEMENT C3 96289 07/04/2018 [facility] LIVER PROFILE 93715 07/04/2018 [facility] CBC/DIFF 68192 07/04/2018 [facility] [place] [address] 07/04/2018 [facility] RA FACTOR [id number] 07/04/2018 [facility] C-REACTIVE PROT 85691 07/04/2018 [facility] ANTI DSDNA BY CRITHIDIA 49304 07/04/2018 [facility] UREA NITROGEN/CREATININE 24402 07/04/2018 [facility] COMPLEMENT C4 17581 07/04/2018 [facility] COMPLEMENT C3 89066 07/04/2018 [facility] LIVER PROFILE 52037 07/04/2018 [facility] CBC/DIFF 48036 07/04/2018 [facility] [place] [address] 07/04/2018 [facility] RA FACTOR 09860 07/04/2018 [facility] C-REACTIVE PROT 16786 07/04/2018 [facility] ANTI DSDNA BY CRITHIDIA 32619 07/04/2018 [facility] UREA NITROGEN/CREA 01865 07/04/2018 [facility] HEPATITIS PANEL 93119 05/03/2018 [facility] COMPREHENSIVE METABOLIC PANEL 19229 05/03/2018 [facility] CBC/DIFF 25431 05/03/2018 [facility] C-REACTIVE PROT 65931 05/03/2018 [facility] ANTI DSDNA BY CRITHIDIA 54886 05/03/2018 [facility] COMPLEMENT C3 84296 05/03/2018 [facility] COMPLEMENT C4 66336 05/03/2018 [facility] CCP IGG ABS 11569 05/03/2018 [facility] VIT D, 25-HYDROXY 83823 05/03/2018 [facility] TOTAL PROTEIN/CREATININE RATIO, URINE 63732 05/03/2018 [facility] OPAL 41437 05/03/2018 [facility] XRAY SPINE LUMBOSACRAL AP-LAT 44899 05/03/2018 [facility] XRAY CHEST 2 VIEWS 27120 05/03/2018 [facility] XRAY SHOULDER 2 VIEWS MIN 08841 05/03/2018 [facility] HEPATITIS PANEL 99008 05/03/2018 [facility] COMPREHENSIVE METABOLIC PANEL(DBIL NOT INCLUDED) 66547 05/03/2018 [facility] CBC/DIFF 49671 05/03/2018 [facility] C-REACTIVE PROT 33205 05/03/2018 [facility] ANTI DSDNA BY CRITHIDIA 79601 05/03/2018 [facility] COMPLEMENT C3 68171 05/03/2018 [facility] COMPLEMENT C4 30658 05/03/2018 [facility] CCP IGG ABS 88027 05/03/2018 [facility] VIT D, 25-HYDROXY 93069 05/03/2018 [facility] T PROT/CREA RATIO,UR 35510 05/03/2018 [facility] OPAL 99915 05/03/2018 [facility] XRAY SPINE LUMBOSACRAL AP-LAT 84020 05/03/2018 [facility] XRAY CHEST 2 VIEWS 03505 05/03/2018 [facility] XRAY SHOULDER 2 VIEWS MIN 84240 05/03/2018 [facility] THYROID STIMULATING HORMONE (TSH) 96123 03/30/2018 [facility] CBC/DIFF 61016 03/30/2018 [facility] COMPREHENSIVE METABOLIC PANEL 19959 03/30/2018 [facility] VIT D, 25-HYDROXY 10504 03/30/2018 [facility] TSH 75226 03/29/2018 [facility] CBC/DIFF 33103 03/29/2018 [facility] COMPREHENSIVE METABOLIC PANEL(DBIL NOT INCLUDED) 10580 03/29/2018 [facility] VIT D, 25-HYDROXY 70168 03/29/2018 [facility] Assessment and Plan No Data Provided for This Section Plan of Care Plan of Care Date Source IMM Influenza Seasonal Jun to November (>/=19 yrs) 06/04/2019 [facility] Upcoming EncountersDateTypeSpecialtyCare TeamDescription 02/22/2019 Office Visit Psychiatry Delaney Reyes MD[address] [phone] Health MaintenanceDue DateLast DoneComments Cervical Cancer Scrn (3 Yrs) 1983 Breast Cancer Scrn (Yearly) 2002 Colorectal Cancer Scrn Annual (FIT/FOBT) Age 50 to 75 2012 02/11/2010 IMM Influenza Seasonal Jun to November (>/=19 yrs) 06/04/2019 02/13/2019 [facility] Upcoming EncountersDateTypeSpecialtyCare TeamDescription 08/22/2018 Appointment Colon-Chani Fuller MD[address], [place] [phone] (Fax) full pft 6mwt 2018 Office Visit Psychiatry Delaney Reyes, MDDept. of Psychiatry-[address] [phone] (Fax) 2018 Office Visit Psychology Delaney Reyes, MDDept. of Psychiatry-EVNX[address] [place], [place] [phone] (Fax) Maria Del Rosario [place] [address], [place] [phone] (Fax) 09/17/2018 Office Visit Rheumatology Colon-Chani Fuller MD[address], [place] [phone] (Fax) Health MaintenanceDue DateLast DoneComments Cervical Cancer Scrn (3 Yrs) 1983 Breast Cancer Scrn (Yearly) 2002 Colorectal Cancer Scrn Annual (FIT/FOBT) Age 50 to 75 2012 02/11/2010 IMM Influenza Seasonal Jun to November (>/=19 yrs) 06/04/2018 07/26/2018 [facility] IMM Influenza Seasonal Jun to November (>/=19 yrs) 06/04/2018 [facility] Colorectal Cancer Scrn Annual (FIT/FOBT) Age 50 to 75 2012 [facility] Breast Cancer Scrn (Yearly) 2002 [facility] Cervical Cancer Scrn (3 Yrs) 1983 [facility] Social History Social History Date Source Tobacco UseTypesPacks/DayYears UsedDate Never Smoker Smokeless Tobacco: Never Used Tobacco Cessation: Counseling Given: Yes Alcohol UseDrinks/Weekoz/WeekComments Yes occasional Food InsecurityAnswerDate Recorded Within the past 12 months, you worried that your food would run out before you got money to buy more. Never true 04/27/2018 Within the past 12 months, the food you bought just didn't last and you didn't have money to get more. Never true 04/27/2018 Sex Assigned at BirthDate Recorded Not on file Job Start DateOccupationIndustry Not on file Not on file Not on file Travel HistoryTravel StartTravel End No recent travel history available. 02/06/2019 [facility] Social History ElementQualifiersDate Reported Last Colonoscopy: . 08/23/14 November 23, 2015 Ethnicity . Status , Is indonesian your primary language? No wolof November 23, 2015 children . 3 November 23, 2015 Flu Vaccine: . 2014November 23, 2015 Tobacco Use: . Are you a: never smoker November 23, 2015 Marital Status: . November 23, 2015 Caffeine intake? . Status: Yes, What type: Coffee November 23, 2015 Do you exercise? . Answer: Yes, Type: walking, biking November 23, 2015 Do you drink alcohol? . Status: Yes, How often? 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, 2015 11/23/2015 [facility] Family History Value Date Source QualifierDescriptionCommentDate Reported Maternal Grandmother Comment not available January 23, 2015 Paternal Grandmother Comment not available January 23, 2015 Siblings alive throat cancer January 23, 2015 Maternal Grandfather Comment not available January 23, 2015 Children alive Comment not available January 23, 2015 Father alive Comment not available January 23, 2015 Paternal Grandfather Comment not available January 23, 2015 Mother alive Parkinsons, alzheimer January 23, 2015 Other: Comment not available January 23, 2015 01/27/2015 [facility] Advance Directives No Data Provided for This Section Functional Status No Data Provided for This Section
--- OUTSIDE RECORDS SUMMARY | 2019-03-18 08:45 | XMS REPORT ---
Author Davidson Alvarez Organization [employer] Address Unknown Phone Unavailable Care Team Providers Care Vascular Nurse Name Role Phone Davidson Talbot CP Unavailable Allergies No Known Allergies Problems Problem Type Condition Code Onset Dates Condition Status Assessment Inflammatory arthritis M19.90 Active Problem Rash R21 Active Problem Polyarthritis M13.0 Active Assessment Long-term use of high-risk medication Z79.899 Active Assessment Lupus M32.9 Active Problem De Quervain's tenosynovitis M65.4 Active Problem Long-term use of high-risk medication Z79.899 Active Problem Fibromyalgia M79.7 Active Problem Inflammatory arthritis M19.90 Active Problem Raised antibody titer R76.0 Active Problem Screening for osteoporosis Z13.820 Active Problem Lupus M32.9 Active Medications No Known Medications Results No Known Results Summary Purpose [employer] Submission
--- OUTSIDE RECORDS SUMMARY | 2019-03-18 08:45 | XMS REPORT ---
Author Author Rishabh Segura Organization [employer] Address Unknown Phone Unavailable Care Team Providers Care Receivable Executive Name Role Phone Rishabh Segura CP Unavailable Allergies No Known Allergies Problems Problem Type Condition Code Onset Dates Condition Status Problem Depression F32.9 Active Problem History of abnormal cervical Pap smear Z87.898 Active Problem Vitamin D deficiency E55.9 Active Problem BMI 34.0-34.9,adult Z68.34 Active Problem Acquired hypothyroidism E03.9 Active Problem Obstructive sleep apnea G47.33 Active Problem Uses Irish as primary spoken language Z78.9 Active Problem Positive OPAL (antinuclear antibody) R76.8 Active Problem Prediabetes R73.03 Active Problem Recurrent major depressive disorder, remission status unspecified F33.9 Active Problem Inflammatory arthritis M19.90 Active Problem Lupus M32.9 Active Assessment Obstructive sleep apnea G47.33 Active Problem Anxiety F41.9 Active Problem Insomnia G47.00 Active Medications No Known Medications Results No Known Results Summary Purpose [employer] Submission
--- OUTSIDE RECORDS SUMMARY | 2019-03-18 08:46 | XMS REPORT ---
Author Author Rishabh Segura Organization [employer] Address Unknown Phone Unavailable Care Team Providers Care Horticultural Farmer Name Role Phone Rishabh Segura CP Unavailable Allergies, Adverse Reactions, Alerts Substance Reaction Event Type N.K.D.A. Info Not Available Non Drug Allergy Problems Problem Type Condition Code Onset Dates Condition Status Assessment Pain in right leg M79.604 Active Assessment Pain of left leg M79.605 Active Assessment Recurrent major depressive disorder, remission status unspecified F33.9 Active Assessment Other fatigue R53.83 Active Assessment Major depressive disorder, single episode, unspecified F32.9 Active Problem Inflammatory arthritis M19.90 Active Assessment Uses Armenian as primary spoken language Z78.9 Active Problem Lupus M32.9 Active Assessment History of abnormal cervical Pap smear Z87.898 Active Problem Anxiety F41.9 Active Problem Depression F32.9 Active Problem Insomnia G47.00 Active Problem History of abnormal cervical Pap smear Z87.898 Active Problem Major depressive disorder, single episode, unspecified F32.9 Active Assessment Lupus M32.9 Active Assessment Inflammatory arthritis M19.90 Active Problem Positive OPAL (antinuclear antibody) R76.8 Active Assessment Prediabetes R73.03 Active Problem Uses Armenian as primary spoken language Z78.9 Active Problem Vitamin D deficiency E55.9 Active Problem Prediabetes R73.03 Active Problem Recurrent major depressive disorder, remission status unspecified F33.9 Active Assessment Depression F32.9 Active Assessment Insomnia G47.00 Active Assessment Vitamin D deficiency E55.9 Active Assessment Anxiety F41.9 Active Assessment Screening for breast cancer Z12.39 Active Assessment Encntr for general adult medical exam w/o abnormal findings Z00.00 Active Assessment Positive OPAL (antinuclear antibody) R76.8 Active Assessment Screening for colon cancer Z12.11 Active Medications Medication Code System Code Instructions Start Date End Date Status Dosage Venlafaxine HCl ER [facility] 34894878081 75 mg Orally Once a day Active 1 capsule with food Mirtazapine [facility] [address]-66 45 Active 1 tablet before bedtime in the evening HydrOXYzine HCl [facility] 62962641099 50 mg Orally at hour of sleep Aug 31, 2015 Active 1 tablet as needed Trazodone HCl [facility] 62198672213 50 mg Orally Once a day December 19, 2017 Active 1 tablet at bedtime as needed Melatonin [facility] 18739352139 3 MG Orally Active 1 capsule at bedtime as needed with food Vital Signs Date/Time: December 19, 2017 BMI 32.68 Index Weight 173 lbs Height 61 in Temperature 98.1 F Cardiac Monitoring Heart Rate 55 /min Blood Pressure Diastolic 62 mm Hg Blood Pressure Systolic 118 mm Hg Results Name Result Date Reference Range Unit Abnormality Flag HEMOCCULT CARD Summary Purpose [employer] Submission
--- OUTSIDE RECORDS SUMMARY | 2019-03-18 08:46 | XMS REPORT ---
Author Author Rishabh Segura Organization [employer] Address Unknown Phone Unavailable Care Team Providers Care Shower Doors And Panels Fabricator Name Role Phone Rishabh Segura CP Unavailable Allergies No Known Allergies Problems Problem Type Condition Code Onset Dates Condition Status Problem Insomnia G47.00 Active Problem Vitamin D deficiency E55.9 Active Problem Depression F32.9 Active Problem Positive OPAL (antinuclear antibody) R76.8 Active Problem History of abnormal cervical Pap smear Z87.898 Active Problem Acquired hypothyroidism E03.9 Active Problem Recurrent major depressive disorder, remission status unspecified F33.9 Active Problem Uses Citizen Of [place] as primary spoken language Z78.9 Active Problem Major depressive disorder, single episode, unspecified F32.9 Active Problem Prediabetes R73.03 Active Problem Inflammatory arthritis M19.90 Active Problem Lupus M32.9 Active Problem Anxiety F41.9 Active Medications Medication Code System Code Instructions Start Date End Date Status Dosage Vitamin D (Ergocalciferol) [facility] [id number] UNIT Orally once per week January 16, 2018 Jul 17, 2018 Active 1 capsule Results No Known Results Summary Purpose eClinicalWorks Submission
--- OUTSIDE RECORDS SUMMARY | 2019-03-18 08:46 | XMS REPORT ---
Author Author Rishabh Segura Organization eClinicalWorks Address Unknown Phone Unavailable Care Team Providers Care Child Welfare Caseworker Name Role Phone Rishabh Segura CP Unavailable Allergies No Known Allergies Problems Problem Type Condition Code Onset Dates Condition Status Problem Insomnia G47.00 Active Problem Vitamin D deficiency E55.9 Active Problem Depression F32.9 Active Problem Acquired hypothyroidism E03.9 Active Problem Positive OPAL (antinuclear antibody) R76.8 Active Problem BMI 34.0-34.9,adult Z68.34 Active Problem Recurrent major depressive disorder, remission status unspecified F33.9 Active Problem Uses Croatian as primary spoken language Z78.9 Active Problem History of abnormal cervical Pap smear Z87.898 Active Problem Prediabetes R73.03 Active Problem Inflammatory arthritis M19.90 Active Problem Lupus M32.9 Active Assessment Vitamin D deficiency E55.9 Active Problem Anxiety F41.9 Active Medications Medication Code System Code Instructions Start Date End Date Status Dosage Vitamin D (Ergocalciferol) [facility] 40098370662 10996 UNIT Orally once per week January 16, 2018 Oct 16, 2018 Active 1 capsule Results No Known Results Summary Purpose eClinicalWorks Submission
--- OUTSIDE RECORDS SUMMARY | 2019-03-18 08:46 | XMS REPORT ---
Author Davidson Alvarez Organization eClinicalWorks Address Unknown Phone Unavailable Care Team Providers Care Automatic Centrifugal Station Operator Name Role Phone Davidson Talbot CP Unavailable Allergies No Known Allergies Problems Problem Type Condition Code Onset Dates Condition Status Problem Rash R21 Active Problem Polyarthritis M13.0 Active Problem De Quervain's tenosynovitis M65.4 Active Problem Long-term use of high-risk medication Z79.899 Active Problem Fibromyalgia M79.7 Active Problem Inflammatory arthritis M19.90 Active Problem Raised antibody titer R76.0 Active Problem Screening for osteoporosis Z13.820 Active Problem Lupus M32.9 Active Medications No Known Medications Results No Known Results Summary Purpose eClinicalWorks Submission
--- OUTSIDE RECORDS SUMMARY | 2019-03-18 08:47 | XMS REPORT ---
Author Author Rishabh Segura Organization eClinicalWorks Address Unknown Phone Unavailable Care Team Providers Care Tour Consultant Name Role Phone Rishabh Segura CP Unavailable [...] remission status unspecified F33.9 Active Problem Uses Saudi Arabian as primary spoken language Z78.9 Active Problem Major depressive disorder, single episode, unspecified F32.9 Active Problem Prediabetes R73.03 Active Assessment Acquired hypothyroidism E03.9 Active Problem Inflammatory arthritis M19.90 Active Assessment Major depressive disorder, single episode, unspecified F32.9 Active Problem Lupus M32.9 Active Assessment Vitamin D deficiency E55.9 Active Problem Anxiety F41.9 Active Medications Medication Code System Code Instructions Start Date End Date Status Dosage Synthroid [facility] 13603639081 50 MCG Orally Once a day January 16, 2018 Active 1 tablet on an empty stomach in the morning Vitamin D (Ergocalciferol) [facility] 42680773559 23622 UNIT Orally daily January 16, 2018 Active 1 capsule Citalopram Hydrobromide [facility] 55927036996 10 mg Orally Once a day January 16, 2018 Active 1 tablet Results No Known Results Summary Purpose eClinicalWorks Submission
--- OUTSIDE RECORDS SUMMARY | 2019-03-18 08:47 | XMS REPORT ---
Author Author Justine Garcia [facility] eClinicalWorks Address Unknown Phone Unavailable Care Team Providers Care Dial Mounter Name Role Phone Justine Garcia CP Unavailable Allergies, Adverse Reactions, Alerts Substance Reaction Event Type N.K.D.A. Info Not Available Non Drug Allergy Problems Problem Type Condition Code Onset Dates Condition Status Problem Anxiety F41.9 Active Problem Depression F32.9 Active Problem Insomnia G47.00 Active Problem Positive OPAL (antinuclear antibody) R76.8 Active Problem History of abnormal cervical Pap smear Z87.898 Active Problem Acquired hypothyroidism E03.9 Active Problem Uses [place] as primary spoken language Z78.9 Active Problem Vitamin D deficiency E55.9 Active Problem Prediabetes R73.03 Active Problem Recurrent major depressive disorder, remission status unspecified F33.9 Active Assessment Vitamin D deficiency E55.9 Active Assessment Insomnia G47.00 Active Assessment Recurrent major depressive disorder, remission status unspecified F33.9 Active Problem Inflammatory arthritis M19.90 Active Assessment Acquired hypothyroidism E03.9 Active Problem Lupus M32.9 Active Medications Medication Code System Code Instructions Start Date End Date Status Dosage HydrOXYzine HCl [facility] 42531880753 50 mg Orally at hour of sleep Aug 31, 2015 Active 1 tablet as needed Vitamin D (Ergocalciferol) [facility] 68172502004 01497 UNIT Orally once per week January 16, 2018 Jul 17, 2018 Active 1 capsule Trazodone HCl [facility] 72587925945 50 mg Orally Once a day December 19, 2017 Active 2 tablets Venlafaxine HCl ER ND 75160490661 75 mg Orally Once a day Active 1 capsule with food Mirtazapine [facility] [address]-73 45 Active 1 tablet before bedtime in the evening Synthroid [facility] 20251076338 50 MCG Orally Once a day January 16, 2018 Active 1 tablet on an empty stomach in the morning Citalopram Hydrobromide ND 92666159359 20 MG Orally Once a day January 16, 2018 Active 1 tablet Amitriptyline HCl [facility] 24760299931 25 MG Orally Once a day Active [address] [facility] 09086466618 3 MG Orally Active 1 capsule at bedtime as needed with food Vital Signs Date/Time: February 22, 2018 BMI 33.63 Index Weight 178 lbs Height 61 in Cardiac Monitoring Heart Rate 56 /min Blood Pressure Diastolic 60 mm Hg Blood Pressure Systolic 98 mm Hg Results No Known Results Summary Purpose eClinicalWorks Submission
--- OUTSIDE RECORDS SUMMARY | 2019-03-18 08:47 | XMS REPORT ---
Author Author Rishabh Segura Organization eClinicalWorks Address Unknown Phone Unavailable Care Team Providers Care Wrist Hemmer Name Role Phone Rishabh Segura CP Unavailable [...] remission status unspecified F33.9 Active Problem Uses Barbadian as primary spoken language Z78.9 Active Problem Major depressive disorder, single episode, unspecified F32.9 Active Problem Prediabetes R73.03 Active Problem Inflammatory arthritis M19.90 Active Problem Lupus M32.9 Active Problem Anxiety F41.9 Active Medications Medication Code System Code Instructions Start Date End Date Status Dosage Vitamin D (Ergocalciferol) [facility] 48999599591 95236 UNIT Orally once per week January 16, 2018 November 04, 2018 Active 1 capsule Results No Known Results Summary Purpose eClinicalWorks Submission
--- OUTSIDE RECORDS SUMMARY | 2019-03-18 08:47 | XMS REPORT ---
Author Author Rishabh Seguar Organization eClinicalWorks Address Unknown Phone Unavailable Care Team Providers Care Band Ripsaw Operator Name Role Phone Rishabh Segura CP Unavailable Allergies, Adverse Reactions, Alerts Substance Reaction Event Type N.K.D.A. Info Not Available Non Drug Allergy Problems Problem Type Condition Code Onset Dates Condition Status Problem Insomnia G47.00 Active Problem Vitamin D deficiency E55.9 Active Problem Depression F32.9 Active Problem Positive OPAL (antinuclear antibody) R76.8 Active Assessment Acquired hypothyroidism E03.9 Active Problem History of abnormal cervical Pap smear Z87.898 Active Problem Acquired hypothyroidism E03.9 Active Problem Recurrent major depressive disorder, remission status unspecified F33.9 Active Problem Uses Luxembourgish as primary spoken language Z78.9 Active Problem Major depressive disorder, single episode, unspecified F32.9 Active Problem Prediabetes R73.03 Active Assessment Lupus M32.9 Active Assessment Insomnia G47.00 Active Assessment Vitamin D deficiency E55.9 Active Assessment Inflammatory arthritis M19.90 Active Assessment History of abnormal cervical Pap smear Z87.898 Active Problem Inflammatory arthritis M19.90 Active Assessment Major depressive disorder, single episode, unspecified F32.9 Active Problem Lupus M32.9 Active Assessment Uses Luxembourgish as primary spoken language Z78.9 Active Problem Anxiety F41.9 Active Medications Medication Code System Code Instructions Start Date End Date Status Dosage Trazodone HCl [facility] 56624411736 50 mg Orally Once a day December 19, 2017 Active 2 tablets HydrOXYzine HCl [facility] 26803577579 50 mg Orally at hour of sleep Aug 31, 2015 Active 1 tablet as needed Mirtazapine [facility] [address]-90 45 Active 1 tablet before bedtime in the evening Melatonin ND 82114706291 3 MG Orally Active 1 capsule at bedtime as needed with food Venlafaxine HCl ER ND 99925922780 75 mg Orally Once a day Active 1 capsule with food Synthroid ND 15172314464 50 MCG Orally Once a day January 16, 2018 Active 1 tablet on an empty stomach in the morning Vitamin D (Ergocalciferol) [facility] 99310587548 20705 UNIT Orally daily January 16, 2018 May 16, 2018 Active 1 capsule Citalopram Hydrobromide [facility] 02975225587 10 mg Orally Once a day January 16, 2018 Active 1 tablet Vital Signs Date/Time: January 16, 2018 BMI 33.82 Index Weight 179 lbs Height 61 in Temperature 98.2 F Cardiac Monitoring Heart Rate 59 /min Blood Pressure Diastolic 58 mm Hg Blood Pressure Systolic 96 mm Hg Results No Known Results Summary Purpose eClinicalWorks Submission
--- OUTSIDE RECORDS SUMMARY | 2019-03-18 08:48 | XMS REPORT ---
Author Author Rishabh Segura Organization eClinicalWorks Address Unknown Phone Unavailable Care Team Providers Care Report Clerk Name Role Phone Rishabh Segura CP Unavailable [...] remission status unspecified F33.9 Active Problem Uses Occitan as primary spoken language Z78.9 Active Problem History of abnormal cervical Pap smear Z87.898 Active Problem Prediabetes R73.03 Active Assessment Lupus M32.9 Active Assessment Acquired hypothyroidism E03.9 Active Assessment Breast cancer screening Z12.31 Active Assessment Prediabetes R73.03 Active Assessment Vitamin D deficiency E55.9 Active Problem Inflammatory arthritis M19.90 Active Assessment Uses Occitan as primary spoken language Z78.9 Active Problem Lupus M32.9 Active Assessment BMI 34.0-34.9,adult Z68.34 Active Problem Anxiety F41.9 Active Medications Medication Code System Code Instructions Start Date End Date Status Dosage Amitriptyline HCl [facility] 85894645949 25 MG Orally Once a day Active 2 tablet Vitamin D (Ergocalciferol) [facility] 46075389280 34694 UNIT Orally once per week January 16, 2018 Apr 04, 2019 Active 1 capsule Venlafaxine HCl ER ND 41139770292 75 mg Orally Once a day Active 1 capsule with food HydrOXYzine HCl ND 73014844881 50 mg Orally at hour of sleep Aug 31, 2015 Active 1 tablet as needed Citalopram Hydrobromide ND 43340441791 10 mg Orally Once a day January 16, 2018 Active 1 tablet Synthroid [facility] 03322272340 50 MCG Orally Once a day January 16, 2018 Active 1 tablet on an empty stomach in the morning Mirtazapine [facility] [address]-89 45 Active 1 tablet before bedtime in the evening Citalopram Hydrobromide [facility] 97564365585 20 MG Active TAKE 1 TABLET BY MOUTH EVERY DAY Trazodone HCl [facility] 21638956088 50 mg Orally Once a day December 19, 2017 Active 2 tablets Melatonin [facility] 11551069396 3 MG Orally Active 1 capsule at bedtime as needed with food MetFORMIN HCl ER [facility] 88064420860 750 MG Orally Once a day Apr 09, 2018 Active 1 tablet with evening meal Vital Signs Date/Time: Apr 09, 2018 BMI 34.95 Index Weight 185 lbs Height 61 in Temperature 98.4 F Cardiac Monitoring Heart Rate 53 /min Blood Pressure Diastolic 62 mm Hg Blood Pressure Systolic 96 mm Hg Results No Known Results Summary Purpose eClinicalWorks Submission
--- OUTSIDE RECORDS SUMMARY | 2019-03-18 08:48 | XMS REPORT ---
Author Author Rishabh Segura Organization eClinicalWorks Address Unknown Phone Unavailable Care Team Providers Care Apartment Manager Name Role Phone Rishabh Segura CP Unavailable Allergies No Known Allergies Problems Problem Type Condition Code Onset Dates Condition Status Problem Insomnia G47.00 Active Problem Vitamin D deficiency E55.9 Active Problem Depression F32.9 Active Problem Acquired hypothyroidism E03.9 Active Problem Positive OPAL (antinuclear antibody) R76.8 Active Problem BMI 34.0-34.9,adult Z68.34 Active Problem Recurrent major depressive disorder, remission status unspecified F33.9 Active Problem Uses Mongolian as primary spoken language Z78.9 Active Problem History of abnormal cervical Pap smear Z87.898 Active Problem Prediabetes R73.03 Active Assessment Acquired hypothyroidism E03.9 Active Problem Inflammatory arthritis M19.90 Active Problem Lupus M32.9 Active Assessment Prediabetes R73.03 Active Problem Anxiety F41.9 Active Medications Medication Code System Code Instructions Start Date End Date Status Dosage Citalopram Hydrobromide [facility] 18040770674 20 mg orally Once a day Active 1 tablet Synthroid ND 53701141420 50 MCG Orally qd LAST REFILL, NEEDS BLOOD WORK January 16, 2018 Active 1 tablet on an empty stomach in the morning MetFORMIN HCl ER ND 65597214609 750 MG Orally qd LAST REFILL, NEEDS TO BE SEEN Apr 09, 2018 Active 1 tablet with evening meal Results No Known Results Summary Purpose eClinicalWorks Submission
--- OUTSIDE RECORDS SUMMARY | 2019-03-18 08:48 | XMS REPORT ---
Author Author Rishabh Segura Organization eClinicalWorks Address Unknown Phone Unavailable Care Team Providers Care Binding Bench Worker Name Role Phone Rishabh Segura CP Unavailable Allergies No Known Allergies Problems Problem Type Condition Code Onset Dates Condition Status Problem Insomnia G47.00 Active Problem Vitamin D deficiency E55.9 Active Problem Depression F32.9 Active Problem Acquired hypothyroidism E03.9 Active Problem Positive OPAL (antinuclear antibody) R76.8 Active Problem BMI 34.0-34.9,adult Z68.34 Active Problem Recurrent major depressive disorder, remission status unspecified F33.9 Active Problem Uses Maori as primary spoken language Z78.9 Active Problem History of abnormal cervical Pap smear Z87.898 Active Problem Prediabetes R73.03 Active Problem Inflammatory arthritis M19.90 Active Problem Lupus M32.9 Active Assessment Insomnia G47.00 Active Problem Anxiety F41.9 Active Medications Medication Code System Code Instructions Start Date End Date Status Dosage Trazodone HCl [facility] 82749418733 50 mg Orally once every night December 19, 2017 Active 1 tablet Results No Known Results Summary Purpose eClinicalWorks Submission
--- OUTSIDE RECORDS SUMMARY | 2019-03-18 08:48 | XMS REPORT ---
Author Author ~~Cydney Stein [facility] eClinicalWorks Address Unknown Phone Unavailable Care Team Providers Care Engine Service Repairer Name Role Phone ~~Cydney Stein Unavailable Encounters Encounter Location Date LEFT KNEE PAIN/ SWELLLING [facility] Jul 02, 2014 Needs call back from Medical Staff [facility] Jul 03, 2014 Needs referral [facility] Jul 09, 2014 Problems Problem Type Condition ICD-9 Code Onset Dates Condition Status Problem BMI 31.0-31.9,adult V85.31 Active Problem Depression 311 Active Problem Obesity 278.00 Active Problem Abnormal pap 796.9 Active Medications Medication Code System Code Instructions Start Date End Date Status Dosage Medrol (Walt) MEDISPAN [address]-46 4 mg Orally as directed Jul 03, 2014 Jul 04, 2014 Active as directed Social History Social History Element Qualifiers Date Reported children . 3 Jul 02, 2014 Tobacco Use: . Are you a: never smoker Jul 02, 2014 Marital Status: . Jul 02, 2014 Do you drink alcohol? . Status: Yes, How often? 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
--- OUTSIDE RECORDS SUMMARY | 2019-03-18 08:49 | XMS REPORT ---
Author Author Ramona Mcadams Organization eClinicalWorks Address Unknown Phone Unavailable Care Team Providers Care Security Expert Name Role Phone Ramona Mcadams CP Unavailable Allergies, Adverse Reactions, Alerts Substance Reaction Event Type N.K.D.A. Info Not Available Non Drug Allergy Encounters Encounter Location Date WWE [facility] Sep 01, 2014 SS STUDY QUESTIONAIRE [facility] Sep 12, 2014 LAB RESULTS [facility] Sep 12, 2014 LEFT KNEE PAIN/ SWELLLING [facility] Jul 02, 2014 Needs call back from Medical Staff [facility] Jul 03, 2014 Needs referral [facility] Jul 09, 2014 Problems Problem Type Condition ICD-9 Code Onset Dates Condition Status Assessment Hyperlipidemia 272.4 Active Assessment Positive OPAL (antinuclear antibody) 795.79 Active Assessment Excessive daytime sleepiness 780.54 Active Assessment Prediabetes 790.29 Active Assessment History of abnormal Pap smear V13.29 Active Assessment Obesity 278.00 Active Assessment Depression 311 Active Assessment Anxiety 300.00 Active Assessment Vitamin d deficiency 268.9 Active Assessment BMI 31.0-31.9,adult V85.31 Active Assessment Insomnia 307.41 Active Social History Social History Element Qualifiers Date Reported children . 3 Sep 12, 2014 Tobacco Use: . Are you a: never smoker Sep 12, 2014 Marital Status: . Sep 12, 2014 Do you drink alcohol? . Status: Yes, How often? 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
--- OUTSIDE RECORDS SUMMARY | 2019-03-18 08:49 | XMS REPORT ---
Author Author Ramona Mcadams Organization eClinicalWorks Address Unknown Phone Unavailable Care Team Providers Care Senior Data Integration Developer Name Role Phone Ramona Mcadams CP Unavailable Allergies, Adverse Reactions, Alerts Substance Reaction Event Type N.K.D.A. Info Not Available Non Drug Allergy Encounters Encounter Location Date WWE [facility] Sep 01, 2014 LEFT KNEE PAIN/ SWELLLING [facility] Jul 02, 2014 Needs call back from Medical Staff [facility] Jul 03, 2014 Needs referral [facility] Jul 09, 2014 Problems Problem Type Condition ICD-9 Code Onset Dates Condition Status Assessment Abnormal pap 796.9 Active Assessment BMI 31.0-31.9,adult V85.31 Active Assessment Encounter for routine gynecological examination V72.31 Active Assessment Encounter for screening mammogram for malignant neoplasm of breast V76.12 Active Assessment Insomnia 307.41 Active Assessment Special screening for malignant neoplasms, colon V76.51 Active Social History Social History Element Qualifiers Date Reported children . 3 Sep 01, 2014 Tobacco Use: . Are you a: never smoker Sep 01, 2014 Marital Status: . Sep 01, 2014 Do you drink alcohol? . Status: Yes, How often? 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
--- OUTSIDE RECORDS SUMMARY | 2019-03-18 08:49 | XMS REPORT ---
Author Author ~~Cydney Stein Organization eClinicalWorks Address Unknown Phone Unavailable Care Team Providers Care 911 Emergency Dispatcher Name Role Phone ~~Cydney Stein CP Unavailable Allergies, Adverse Reactions, Alerts Substance Reaction Event Type N.K.D.A. Info Not Available Non Drug Allergy Encounters Encounter Location Date LEFT KNEE PAIN/ SWELLLING [facility] Jul 02, 2014 Needs call back from Medical Staff [facility] Jul 03, 2014 Needs referral [facility] Jul 09, 2014 Problems Problem Type Condition ICD-9 Code Onset Dates Condition Status Assessment Abnormal pap 796.9 Active Assessment Depression screening V79.0 Active Assessment Toe pain, left 729.5 Active Assessment Ibarra's Cyst 727.51 Active Assessment Colon cancer screening V76.51 Active Problem BMI 31.0-31.9,adult V85.31 Active Problem Depression 311 Active Problem Obesity 278.00 Active Assessment Obesity 278.00 Active Assessment BMI 31.0-31.9,adult V85.31 Active Problem Abnormal pap 796.9 Active Assessment Left knee pain 719.46 Active Medications Medication Code System Code Instructions Start Date End Date Status Dosage Venlafaxine HCl ER MEDISPAN [address]-64 75 MG Orally Once a day Active 1 capsule with food Celebrex MEDISPAN [address]-66 200 MG Orally Once a day Jul 02, 2014 Sep 30, 2014 Active 1 capsule IBU Unknown 0 800 MG Orally Three times a day Inactive 1 tablet Social History Social History Element Qualifiers Date Reported children . 3 Jul 02, 2014 Tobacco Use: . Are you a: never smoker Jul 02, 2014 Marital Status: . Jul 02, 2014 Do you drink alcohol? . Status: Yes, How often? 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
--- OUTSIDE RECORDS SUMMARY | 2019-03-18 08:49 | XMS REPORT ---
Author Author Sylvia Garza Organization eClinicalWorks Address Unknown Phone Unavailable Care Team Providers Care Tableman Name Role Phone Sylvia Garza Unavailable Encounters Encounter Location Date LEFT KNEE PAIN/ SWELLLING [facility] Jul 02, 2014 Needs call back from Medical Staff [facility] Jul 03, 2014 Needs referral [facility] Jul 09, 2014 Problems Problem Type Condition ICD-9 Code Onset Dates Condition Status Problem BMI 31.0-31.9,adult V85.31 Active Problem Depression 311 Active Problem Obesity 278.00 Active Problem Abnormal pap 796.9 Active Social History Social History Element Qualifiers Date Reported children . 3 Jul 02, 2014 Tobacco Use: . Are you a: never smoker Jul 02, 2014 Marital Status: . Jul 02, 2014 Do you drink alcohol? . Status: Yes, How often? 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
--- OUTSIDE RECORDS SUMMARY | 2019-03-18 08:49 | XMS REPORT ---
Author Author Sylvia Garza Organization [employer] Address Unknown Phone Unavailable Care Team Providers Care Aprn Name Role Phone Sylvia Garza Unavailable Encounters Encounter Location Date WWE [facility] Sep 01, 2014 SS STUDY QUESTIONAIRE [facility] Sep 12, 2014 LAB RESULTS [facility] Sep 12, 2014 LEFT KNEE PAIN/ SWELLLING [facility] Jul 02, 2014 Needs call back from Medical Staff [facility] Jul 03, 2014 Needs referral [facility] Jul 09, 2014 Social History Social History Element Qualifiers Date Reported children . 3 Sep 12, 2014 Tobacco Use: . Are you a: never smoker Sep 12, 2014 Marital Status: . Sep 12, 2014 Do you drink alcohol? . Status: Yes, How often? 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
--- OUTSIDE RECORDS SUMMARY | 2019-03-18 08:50 | XMS REPORT ---
Author Author Rachel Mehta Organization [employer] Address Unknown Phone Unavailable Care Team Providers Care Bowl Turner Name Role Phone Rachel Mehta CP Unavailable Allergies, Adverse Reactions, Alerts Substance Reaction Event Type N.K.D.A. Info Not Available Non Drug Allergy Encounters Encounter Location Date WWE [facility] Sep 01, 2014 SS STUDY QUESTIONAIRE [facility] Sep 12, 2014 LAB RESULTS [facility] Sep 12, 2014 Unknown [facility] Oct 07, 2014 LEFT KNEE PAIN/ SWELLLING [facility] Jul 02, 2014 Needs call back from Medical Staff [facility] Jul 03, 2014 Needs referral [facility] Jul 09, 2014 H A/ SORE THROAT [facility] December 26, 2014 left eye [facility] January 23, 2015 Problems Problem Type Condition ICD-9 Code Onset Dates Condition Status Problem Depression 311 Active Problem Obesity 278.00 Active Problem BMI 31.0-31.9,adult V85.31 Active Problem Positive OPAL (antinuclear antibody) 795.79 Active Problem Vitamin d deficiency 268.9 Active Problem History of abnormal Pap smear V13.29 Active Problem Prediabetes 790.29 Active Problem Insomnia 307.41 Active Problem Hyperlipidemia 272.4 Active Problem Anxiety 300.00 Active Assessment Upper respiratory infection 465.9 Active Assessment Sore throat 462 Active Assessment Bacterial conjunctivitis of left eye 372.39 Active Problem Spondyloarthropathy 721.90 Active Medications Medication Code System Code Instructions Start Date End Date Status Dosage [facility] [address]-12 75 MG Orally Once a day Active 1 capsule with food Folic Acid [facility] [address]-03 1 MG Orally Once a day Active [address] [facility] [address]-82 2.5 MG Orally every monday Active [address] [facility] [address]-54 500 mg Orally Twice a day January 23, 2015 February 02, 2015 Active [address] [facility] [address]-04 0.5 MG Orally QHS Sep 12, 2014 [address] [facility] [address]-79 5-325 MG Orally every 6 hrs Active 1 tablet as needed Vitamin D (Ergocalciferol) [facility] [address]-82 03082 UNIT Orally once per week Sep 12, 2014 Apr 05, 2015 Active [address] [facility] [address]-47 30-2-10 MG/5ML Orally every 6 hrs January 23, 2015 February 02, 2015 Active 10 ml as needed Polytrim [facility] [address]-21 58539-4.1 UNIT/ML-% Ophthalmic Six times a day January 23, 2015 January 30, 2015 Active 1 drop into affected eye Social History Social History Element Qualifiers Date Reported Flu Vaccine: . no January 23, 2015 Last Colonoscopy: . 08/23/14 January 23, 2015 children . 3 January 23, 2015 Tobacco Use: . Are you a: never smoker January 23, 2015 Marital Status: . January 23, 2015 Do you drink alcohol? . Status: Yes, How often? 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
--- OUTSIDE RECORDS SUMMARY | 2019-03-18 08:50 | XMS REPORT ---
Author Author Humaira Morales [facility] [employer] Address Unknown Phone Unavailable Care Team Providers Care Actuary Manager Name Role Phone Humaira Morales CP Unavailable Allergies, Adverse Reactions, Alerts Substance Reaction Event Type N.K.D.A. Info Not Available Non Drug Allergy Encounters Encounter Location Date WWE [facility] Sep 01, 2014 SS STUDY QUESTIONAIRE [facility] Sep 12, 2014 LAB RESULTS [facility] Sep 12, 2014 Unknown [facility] Oct 07, 2014 LEFT KNEE PAIN/ SWELLLING [facility] Jul 02, 2014 Needs call back from Medical Staff [facility] Jul 03, 2014 Needs referral [facility] Jul 09, 2014 insomnia and stress, headaches [facility] Aug 31, 2015 H A/ SORE THROAT [facility] December 26, 2014 left eye [facility] January 23, 2015 Problems Problem Type Condition ICD-9 Code Onset Dates Condition Status Problem Insomnia 307.41 Active Problem Anxiety 300.00 Active Problem Prediabetes 790.29 Active Problem Depression F32.9 Active Problem Anxiety F41.9 Active Problem Insomnia G47.00 Active Problem Vitamin d deficiency 268.9 Active Problem Hyperlipidemia 272.4 Active Problem History of abnormal Pap smear V13.29 Active Problem Positive OPAL (antinuclear antibody) 795.79 Active Assessment Anxiety F41.9 Active Problem Spondyloarthropathy 721.90 Active Problem Depression 311 Active Assessment Depression F32.9 Active Problem BMI 31.0-31.9,adult V85.31 Active Assessment Insomnia G47.00 Active Problem Obesity 278.00 Active Medications Medication Code System Code Instructions Start Date End Date Status Dosage [facility] [address]-98 0.5 MG Orally QHS Sep 12, 2014 Active 1 tablet [facility] [address]-81 50 mg Orally at hour of sleep Aug 31, 2015 Active 1 tablet as needed Folic Acid [facility] [address]-81 1 MG Orally Once a day Active 1 tablet Methotrexate [facility] [address]-97 2.5 MG Orally every monday Active 5 capsules Venlafaxine HCl ER [facility] [address]-05 75 mg Orally Once a day Active 1 capsule with food [place] [facility] [address]-16 5-325 MG Orally every 6 hrs Active 1 tablet as needed Social History Social History Element Qualifiers Date Reported Last Colonoscopy: . 08/23/14 Aug 31, 2015 Ethnicity . Status , Is wolof your primary language? No zambian Aug 31, 2015 children . 3 Aug 31, 2015 Flu Vaccine: . 2014Aug 31, 2015 Tobacco Use: . Are you a: never smoker Aug 31, 2015 Marital Status: . Aug 31, 2015 Caffeine intake? . Status: Yes, What type: Coffee Aug 31, 2015 Do you exercise? . Answer: Yes, Type: walking, biking Aug 31, 2015 Do you drink alcohol? . Status: Yes, How often? 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
--- OUTSIDE RECORDS SUMMARY | 2019-03-18 08:51 | XMS REPORT ---
Author Author Tierra Mcmahon Organization [employer] Address Unknown Phone Unavailable Care Team Providers Care Assistant Superintendent Name Role Phone Tierra Mcmahon Unavailable Allergies, Adverse Reactions, Alerts Substance Reaction Event Type N.K.D.A. Info Not Available Non Drug Allergy Encounters Encounter Location Date WWE [facility] Sep 01, 2014 SS STUDY QUESTIONAIRE [facility] Sep 12, 2014 LAB RESULTS [facility] Sep 12, 2014 Unknown [facility] Oct 07, 2014 LEFT KNEE PAIN/ SWELLLING [facility] Jul 02, 2014 physical, wwe [facility] Sep 02, 2015 Needs call back from Medical Staff [facility] Jul 03, 2014 Needs referral [facility] Jul 09, 2014 insomnia and stress, headaches [facility] Aug 31, 2015 H A/ SORE THROAT [facility] December 26, 2014 left eye [facility] January 23, 2015 Problems Problem Type Condition ICD-9 Code Onset Dates Condition Status Problem Anxiety 300.00 Active Problem Vitamin d deficiency 268.9 Active Problem Hyperlipidemia 272.4 Active Problem Menopause Z78.0 Active Assessment Encounter for screening mammogram for breast cancer Z12.31 Active Problem Insomnia G47.00 Active Problem Vitamin D deficiency E55.9 Active Problem History of abnormal Pap smear V13.29 Active Problem Positive OPAL (antinuclear antibody) 795.79 Active Problem Depression F32.9 Active Problem Anxiety F41.9 Active Assessment Vitamin D deficiency E55.9 Active Assessment Well woman exam with routine gynecological exam Z01.419 Active Assessment Encounter for screening for malignant neoplasm of colon Z12.11 Active Assessment Menopause Z78.0 Active Problem BMI 31.0-31.9,adult V85.31 Active Problem Obesity 278.00 Active Problem Spondyloarthropathy 721.90 Active Problem Insomnia 307.41 Active Problem Depression 311 Active Problem Prediabetes 790.29 Active Medications Medication Code System Code Instructions Start Date End Date Status Dosage HydrOXYzine HCl [facility] [address]-47 50 mg Orally at hour of sleep Aug 31, 2015 Active 1 tablet as needed Alprazolam [facility] [address]-58 0.5 MG Orally QHS Sep 12, 2014 Active 1 tablet Venlafaxine HCl ER [facility] [address]-17 75 mg Orally Once a day Active 1 capsule with food Social History Social History Element Qualifiers Date Reported Last Colonoscopy: . 08/23/14 Sep 02, 2015 Ethnicity . Status , Is kenyan your primary language? No vietnamese Sep 02, 2015 children . 3 Sep 02, 2015 Flu Vaccine: . 2014Sep 02, 2015 Tobacco Use: . Are you a: never smoker Sep 02, 2015 Marital Status: . Sep 02, 2015 Caffeine intake? . Status: Yes, What type: Coffee Sep 02, 2015 Do you exercise? . Answer: Yes, Type: walking, biking Sep 02, 2015 Do you drink alcohol? . Status: Yes, How often? 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
--- OUTSIDE RECORDS SUMMARY | 2019-03-18 08:52 | XMS REPORT | Clinical Summary ---
Author Author [facility] Organization [facility] Address Unknown Phone Unavailable Care Team Providers Care Bathhouse Attendant Name Role Phone PCP Unavailable Allergies No Known Allergies Medications End Date Status Medication Sig Dispensed Refills Start Date Active levothyroxine (SYNTHROID) 0 50 mcg tablet 8 Active folic acid (FOLVITE) 1 mg Take 1 tablet 90 tablet 3 tabletIndications: by mouth 8 Inflammatory arthritis daily. Active Cyclobenzaprine Take 1 tablet 30 tablet 1 (FLEXERIL) 5 mg by mouth 8 tabletIndications: Low nightly at back pain at multiple bedtime as sites needed for Muscle Spasms. Active naproxen (NAPROSYN) 250 Take 1 tablet 60 tablet 4 mg tabletIndications: by mouth 2 8 Arthralgia of shoulder, times daily unspecified laterality, (with meals). Low back pain at multiple sites Active hydroxychloroquine Take 1 tablet 90 tablet 3 (PLAQUENIL) 200 mg by mouth 8 tabletIndications: daily. Systemic lupus erythematosus, unspecified SLE type, unspecified organ involvement status, Sjogren's syndrome with keratoconjunctivitis sicca 03/14/2019 Active FLUoxetine (PROZAC) 20 mg Take 1 30 capsule 2 capsuleIndications: MDD capsule by 9 (major depressive mouth daily disorder), recurrent for 90 days. episode, moderate 03/14/2019 Active hydrOXYzine (ATARAX) 50 Take 1 tablet 30 tablet 2 mg tabletIndications: MDD by mouth at 9 (major depressive bedtime disorder), recurrent nightly for episode, moderate 90 days. 04/27/2018 Discontinued METRONIDAZOLE 500 MG TAB take 1 tablet 0 (500 mg) by oral route every 8 hours 04/27/2018 Discontinued CIPROFLOXACIN 500 MG TAB take 1 tablet 0 (500 mg) by oral route every 12 hours 04/27/2018 Discontinued PREVACID 30 MG take 1 30 6 CAPIndications: Reflux capsule (30 0 mg) by oral route once daily before a meal 07/20/2018 Discontinued amitriptyline (ELAVIL) 25 Take 2 60 tablet 1 mg tabletIndications: tablets by 8 Insomnia, unspecified mouth at type bedtime nightly. 06/25/2018 Discontinued methotrexate (RHEUMATREX) Take 6 24 tablet 4 2.5 mg tabletIndications: tablets by 8 Inflammatory arthritis mouth weekly. 2018 Discontinued traZODone (DESYREL) 50 mg Take 50 mg by 0 tablet mouth at bedtime nightly. 07/20/2018 Discontinued citalopram (CELEXA) 20 mg Take 20 mg by 0 tablet mouth daily. 09/17/2018 Discontinued methotrexate (RHEUMATREX) Take 1 tablet 72 tablet 0 2.5 mg tabletIndications: by mouth 8 Medication refill weekly. 09/18/2018 citalopram (CELEXA) 40 mg Take 1 tablet 30 tablet 1 tabletIndications: MDD by mouth 8 (major depressive daily for 60 disorder), recurrent days. episode, moderate 2018 Discontinued traZODone (DESYREL) 100 Take 2 60 tablet 1 mg tabletIndications: MDD tablets by 8 (major depressive mouth at disorder), recurrent bedtime episode, moderate nightly for 60 days. 12/13/2018 QUEtiapine (SEROQUEL) 50 Take 1 tablet 30 tablet 2 mg tabletIndications: MDD by mouth at 9 (major depressive bedtime disorder), recurrent nightly for episode, moderate 90 days. 12/14/2018 Discontinued citalopram (CELEXA) 40 mg Take 1 tablet 30 tablet 2 tabletIndications: MDD by mouth 9 (major depressive daily for 90 disorder), recurrent days. episode, moderate Active Problems No known active problems Encounters Care Team Description Date Type Specialty , Maria Del Rosario Quigley PTSD (post-traumatic stress disorder) (Primary Dx); Moderate episode of recurrent major depressive disorder 12/18/2018 Office Visit Psychology 12/18/2018 Travel Delaney Reyes MD MDD (major depressive disorder), recurrent episode, moderate (Primary Dx) 12/14/2018 Office Visit Psychiatry Sanjay Collazo Interpretation 12/14/2018 Telephone 12/14/2018 Travel Delaney Reyes MD MDD (major depressive disorder), recurrent episode, moderate (Primary Dx) 11/02/2018 Refill Psychiatry Delaney Reyes MD Refill Request 10/31/2018 Telephone Psychiatry Chani Rogers MD Systemic lupus erythematosus, unspecified SLE type, unspecified organ involvement status (Primary Dx); Inflammatory arthritis; Fatty liver; High risk medication use; Long-term use of Plaquenil; Axillary lymphadenopathy; BMI 33.0-33.9,adult 09/17/2018 Office Visit Rheumatology 09/17/2018 Travel Delaney Reyes MD Latino, Klair E PTSD (post-traumatic stress disorder) (Primary Dx); Moderate episode of recurrent major depressive disorder 2018 Office Visit Psychology Delaney Reyes MD MDD (major depressive disorder), recurrent episode, moderate (Primary Dx) 2018 Office Visit Psychiatry 2018 Travel Chani Rogers MD 08/22/2018 Hospital Encounter 08/22/2018 Travel Chani Rogers, Physician Results 07/30/2018 Telephone Rheumatology Chani Rogers MD 07/23/2018 Hospital Radiology Encounter Delaney Reyes MD Colon-Rivera, Nilda L, MD MDD (major depressive disorder), recurrent episode, moderate (Primary Dx) 07/20/2018 Office Visit Psychiatry Delaney Reyes MD MDD (major depressive disorder), recurrent episode, moderate 07/20/2018 Orders Only Psychiatry Yaya Gonzalez Interpretation 07/20/2018 Telephone Aracely Wilson LVN Medication refill (Primary Dx) 07/18/2018 Refill Family Practice Chani Rogers MD Systemic lupus erythematosus, unspecified SLE type, unspecified organ involvement status (Primary Dx); Inflammatory arthritis; Urticaria, unspecified; Bilateral calcific tendinitis of shoulders; Abnormal chest x-ray; DDD (degenerative disc disease), lumbar; Abnormal LFTs; Sjogren's syndrome with keratoconjunctivitis sicca; Adjustment disorder with depressed mood 06/25/2018 Office Visit Rheumatology Leigh Ann Correa MD 05/03/2018 Ancillary Radiology Procedure Chani Rogers MD Systemic lupus erythematosus, unspecified SLE type, unspecified organ involvement status (Primary Dx); Inflammatory arthritis; Dietary counseling for Above / Below Normal BMI; Exercise counseling for Above Normal BMI Only!; BMI 34.0-34.9,adult; Arthralgia of shoulder, unspecified laterality; Low back pain at multiple sites; Screening for tuberculosis 04/27/2018 Office Visit Rheumatology Kathy Nettles MD Insomnia, unspecified type 04/17/2018 Refill Psychiatry Kathy Nettles MD Patient left without being seen (Primary Dx) 03/29/2018 Office Visit Psychiatry Kathy Nettles MD Insomnia, unspecified type; MDD (major depressive disorder), recurrent episode, moderate 03/29/2018 Hospital Lab Encounter Kathy Nettles MD MDD (major depressive disorder), recurrent episode, moderate (Primary Dx); Insomnia, unspecified type 02/15/2018 Office Visit Psychiatry Courtney Riley Interpretation 02/15/2018 Telephone after 02/12/2018 Social History Date Tobacco Use Types Packs/Day Years Used Never Smoker Smokeless Tobacco: Never Used Tobacco Cessation: Counseling Given: Yes Drinks/Week oz/Week Comments Alcohol Use occasional Yes Food Insecurity Answer Date Recorded Within the past 12 months, you worried that your Never true 04/27/2018 food would run out before you got money to buy more. Within the past 12 months, the food you bought Never true 04/27/2018 just didn't last and you didn't have money to get more. Sex Assigned at Date Recorded Not on file Industry Job Start Date Occupation Not on file Not on file Not on file Travel End Travel History Travel Start No recent travel history available. Last Filed Vital Signs Reading Time Taken Comments Vital Sign 99/50 12/14/2018 8:36 AM CDT Blood Pressure 56 12/14/2018 8:36 AM CDT Pulse 36.8 C (98.2 F) 12/14/2018 8:36 AM CDT Temperature 18 12/14/2018 8:36 AM CDT Respiratory Rate 96% 03/29/2018 2:58 PM CDT Oxygen Saturation - - Inhaled Oxygen Concentration 86.6 kg (191 lb) 12/14/2018 8:36 AM CDT Weight 154.9 cm (5' 1") 12/14/2018 8:36 AM CDT Height 36.09 12/14/2018 8:36 AM CDT Body Mass Index Plan of Treatment Care Team Description Date Type Specialty Delaney Reyes MD [address] [place] [address] 02/22/2019 Office Visit Psychiatry Health Maintenance Due Date Last Done Comments Cervical Cancer Scrn (3 1983 Yrs) Breast Cancer Scrn 2002 (Yearly) Colorectal Cancer Scrn 2012 02/11/2010 Annual (FIT/FOBT) Age 50 to 75 IMM Influenza Seasonal 06/04/2019Jun to November (>/=19 yrs) Procedures Comments Procedure Name Priority Date/Time Associated Diagnosis COMPLEMENT C4 Routine 09/17/2018 Systemic lupus 10:47 AM ENROLLMENT ELIGIBILITY REPRESENTATIVE erythematosus, unspecified SLE type, unspecified organ involvement status COMPLEMENT C3 Routine 09/17/2018 Systemic lupus 10:47 AM ENROLLMENT ELIGIBILITY REPRESENTATIVE erythematosus, unspecified SLE type, unspecified organ involvement status ANTI DSDNA BY CRITHIDIA Routine 09/17/2018 Systemic lupus 10:47 AM ENROLLMENT ELIGIBILITY REPRESENTATIVE erythematosus, unspecified SLE type, unspecified organ involvement status LIVER PROFILE Routine 09/17/2018 Systemic lupus 10:47 AM ENROLLMENT ELIGIBILITY REPRESENTATIVE erythematosus, unspecified SLE type, unspecified organ involvement status C-REACTIVE PROT Routine 09/17/2018 Systemic lupus 10:47 AM ENROLLMENT ELIGIBILITY REPRESENTATIVE erythematosus, unspecified SLE type, unspecified organ involvement status SED RATE Routine 09/17/2018 Systemic lupus 10:47 AM ENROLLMENT ELIGIBILITY REPRESENTATIVE erythematosus, unspecified SLE type, unspecified organ involvement status TOTAL PROTEIN/CREATININE Routine 09/17/2018 Systemic lupus RATIO, URINE 10:42 AM ENROLLMENT ELIGIBILITY REPRESENTATIVE erythematosus, unspecified SLE type, unspecified organ involvement status PULMONARY - 6 MINUTE WALK Routine 08/22/2018 EXERCISE TEST - COMPLEX 9:09 AM ENROLLMENT ELIGIBILITY REPRESENTATIVE PULMONARY FUNCTION TEST Routine 08/22/2018 8:08 AM ENROLLMENT ELIGIBILITY REPRESENTATIVE CT CHEST W CONTRAST Routine 07/23/2018 Systemic lupus 10:01 AM ENROLLMENT ELIGIBILITY REPRESENTATIVE erythematosus, unspecified SLE type, unspecified organ involvement status Abnormal chest x-ray UREA NITROGEN/CREATININE Routine 07/04/2018 Systemic lupus 1:59 PM CDT erythematosus, unspecified SLE type, unspecified organ involvement status ANTI DSDNA BY CRITHIDIA Routine 07/04/2018 Systemic lupus 1:59 PM CDT erythematosus, unspecified SLE type, unspecified organ involvement status C-REACTIVE PROT Routine 07/04/2018 Systemic lupus 1:59 PM CDT erythematosus, unspecified SLE type, unspecified organ involvement status RA FACTOR Routine 07/04/2018 Sjogren's syndrome with 1:59 PM CDT keratoconjunctivitis sicca SJOGREN'S AB Routine 07/04/2018 Sjogren's syndrome with 1:59 PM CDT keratoconjunctivitis sicca CBC/DIFF Routine 07/04/2018 Systemic lupus 1:59 PM CDT erythematosus, unspecified SLE type, unspecified organ involvement status LIVER PROFILE Routine 07/04/2018 Systemic lupus 1:59 PM CDT erythematosus, unspecified SLE type, unspecified organ involvement status COMPLEMENT C3 Routine 07/04/2018 Systemic lupus 1:59 PM CDT erythematosus, unspecified SLE type, unspecified organ involvement status COMPLEMENT C4 Routine 07/04/2018 Systemic lupus 1:59 PM CDT erythematosus, unspecified SLE type, unspecified organ involvement status OPAL Routine 05/03/2018 10:58 AM CDT TOTAL PROTEIN/CREATININE Routine 05/03/2018 Systemic lupus RATIO, URINE 10:58 AM CDT erythematosus, unspecified SLE type, unspecified organ involvement status VIT D, 25-HYDROXY Routine 05/03/2018 Inflammatory arthritis 10:58 AM CDT CCP IGG ABS Routine 05/03/2018 Systemic lupus 10:58 AM CDT erythematosus, unspecified SLE type, unspecified organ involvement status COMPLEMENT C4 Routine 05/03/2018 Systemic lupus 10:58 AM CDT erythematosus, unspecified SLE type, unspecified organ involvement status COMPLEMENT C3 Routine 05/03/2018 Systemic lupus 10:58 AM CDT erythematosus, unspecified SLE type, unspecified organ involvement status ANTI DSDNA BY CRITHIDIA Routine 05/03/2018 Systemic lupus 10:58 AM CDT erythematosus, unspecified SLE type, unspecified organ involvement status C-REACTIVE PROT Routine 05/03/2018 Systemic lupus 10:58 AM CDT erythematosus, unspecified SLE type, unspecified organ involvement status CBC/DIFF Routine 05/03/2018 Inflammatory arthritis 10:58 AM CDT COMPREHENSIVE METABOLIC Routine 05/03/2018 Inflammatory arthritis PANEL 10:58 AM CDT HEPATITIS PANEL Routine 05/03/2018 Inflammatory arthritis 10:58 AM CDT XRAY SHOULDER 2 VIEWS MIN Routine 05/03/2018 Arthralgia of shoulder, 10:34 AM CDT unspecified laterality XRAY SHOULDER 2 VIEWS MIN Routine 05/03/2018 Arthralgia of shoulder, 10:34 AM CDT unspecified laterality XRAY CHEST 2 VIEWS Routine 05/03/2018 Screening for 10:34 AM CDT tuberculosis XRAY SPINE LUMBOSACRAL Routine 05/03/2018 Low back pain at multiple AP-LAT 10:34 AM CDT sites VIT D, 25-HYDROXY Routine 03/29/2018 Insomnia, unspecified 4:08 PM CDT type MDD (major depressive disorder), recurrent episode, moderate COMPREHENSIVE METABOLIC Routine 03/29/2018 Insomnia, unspecified PANEL 4:08 PM CDT type CBC/DIFF Routine 03/29/2018 Insomnia, unspecified 4:08 PM CDT type THYROID STIMULATING Routine 03/29/2018 Insomnia, unspecified HORMONE (TSH) 4:08 PM CDT type after 02/12/2018 Results * SED RATE (09/17/2018 10:47 AM ENROLLMENT ELIGIBILITY REPRESENTATIVE) Sed Rate 43 (H) <30 mm/Hr BT MAIN-STATION 3 Specimen Blood Performing Organization Address [facility] Phone Number MISYS BT MAIN-STATION 3 * LIVER PROFILE (09/17/2018 10:47 AM ENROLLMENT ELIGIBILITY REPRESENTATIVE) Only the most recent of 2 results within the time period is included. Protein, Total, 8.6 (H) 6.0 - 8.3 g/dL BT MAIN-STATION Serum 1 Albumin 4.4 3.7 - 5.3 g/dL BT MAIN-STATION 1 Bilirubin, 0.3 0.2 - 1.2 mg/dL BT MAIN-STATION Total 1 Alkaline 104 34 - 104 U/L BT MAIN-STATION Phosphatase, S 1 AST (SGOT) 21 13 - 39 U/L BT MAIN-STATION 1 ALT 24 7 - 52 U/L BT MAIN-STATION 1 D Bilirubin 0.1 0.0 - 0.2 mg/dL BT MAIN-STATION 1 Specimen Blood Performing Organization Address [facility] Phone Number MISYS BT MAIN-STATION 1 * ANTI DSDNA BY CRITHIDIA (09/17/2018 10:47 AM ENROLLMENT ELIGIBILITY REPRESENTATIVE) Only the most recent of 3 results within the time period is included. Anti dsDNA Negative NEG Titer BT DIAGNOSTIC IMMUNOLOGY Specimen Blood Performing Organization Address [facility] Phone Number MISYS BT DIAGNOSTIC IMMUNOLOGY * C-REACTIVE PROT (09/17/2018 10:47 AM ENROLLMENT ELIGIBILITY REPRESENTATIVE) Only the most recent of 3 results within the time period is included. C-Reactive Prot 0.8 <10 mg/dL BT MAIN-STATION 1 Specimen Performing Organization Address [facility] Phone Number MISYS BT MAIN-STATION 1 * COMPLEMENT C4 (09/17/2018 10:47 AM ENROLLMENT ELIGIBILITY REPRESENTATIVE) Only the most recent of 3 results within the time period is included. Complement C4 47.9 19 - 52 mg/dL BT MAIN-STATION 1 Specimen Blood Performing Organization Address [facility]/State/Zipcode Phone Number MISYS BT MAIN-STATION 1 * COMPLEMENT C3 (09/17/2018 10:47 AM ENROLLMENT ELIGIBILITY REPRESENTATIVE) Only the most recent of 3 results within the time period is included. Complement C3 183.1 87 - 200 mg/dL BT MAIN-STATION 1 Specimen Blood Performing Organization Address [facility] Phone Number MISYS BT MAIN-STATION 1 * T PROT/CREA RATIO,UR (09/17/2018 10:42 AM ENROLLMENT ELIGIBILITY REPRESENTATIVE) Only the most recent of 2 results within the time period is included. Creatinine, 96.5 20 - 320 mg/dL BT MAIN-STATION Urine 1 T Prot, Ur 0.25 g/L BT MAIN-STATION 1 T Prot/Crea 0.26 0.0 - 0.5 BT MAIN-STATION Ratio,Ur 1 Specimen Urine Performing Organization Address [facility] Phone Number MISYS BT MAIN-STATION 1 * PULMONARY - 6 MINUTE WALK EXERCISE TEST - COMPLEX (08/22/2018 9:09 AM ENROLLMENT ELIGIBILITY REPRESENTATIVE) Specimen * PULMONARY FUNCTION TEST (08/22/2018 8:08 AM ENROLLMENT ELIGIBILITY REPRESENTATIVE) Specimen * CT CHEST W CONTRAST (07/23/2018 10:01 AM ENROLLMENT ELIGIBILITY REPRESENTATIVE) Specimen Impressions Performed At IMPRESSION: SMS 1.Lungs are clear. 2.Nonspecific mildly enlarged left axillary lymph nodes. 3.Hepatic steatosis. Signed By: Pierce Crews M.D., 07/23/2018 10:38 AM Narrative Performed At EXAM:CT CHEST W CONTRAST SMS DATE: 07/23/2018 10:02 AM INDICATION: sle with [...] Thoracic lymph nodes.No adenopathy is seen. Nonspecific mildly enlarged left axillary lymph nodes measuring up to 1.2 cm. Visualized subdiaphragmatic structures.Hepatic steatosis. Soft tissues.Unremarkable. Regional Skeleton.No lytic or blastic lesions. Procedure Note Interface, Rad/Mammog In - 07/23/2018 10:43 AM ENROLLMENT ELIGIBILITY REPRESENTATIVE EXAM: CT CHEST W CONTRAST DATE: 07/23/2018 [...] By: Pierce Crews M.D., 07/23/2018 10:38 AM Performing Organization Address [facility] Phone Number SMS * SJOGREN'S AB (07/04/2018 1:59 PM CDT) Pathologist [facility] Anti SS/A >8.0 LABORATORY Reference range: 0.0 to 0.9 CORPORATION OF Unit: AI [place] Anti SS/B >8.0 LABORATORY Reference range: 0.0 to 0.9 CORPORATION OF Unit: AI [place] Specimen Blood Products (Lab Use Only) - BLOOD Performing Organization Address [facility] Phone Number [facility] OF [address] [place] [address] [place] 145 * RA FACTOR (07/04/2018 1:59 PM CDT) Pathologist [facility] RA Factor 12 <14 IU/mL BT MAIN-STATION 1 Specimen Blood Performing Organization Address [facility] Phone Number [employer] BT MAIN-STATION 1 * CBC/DIFF (07/04/2018 1:59 PM CDT) Only the most recent of 3 results within the time period is included. Pathologist [facility] WBC 7.2 4.5 - 11.0 K/uL BT MAIN-STATION 2 RBC 4.43 4.20 - 5.40 M/uL BT MAIN-STATION 2 Hemoglobin 13.2 12.0 - 16.0 g/dL BT MAIN-STATION 2 Hematocrit 39.4 37.0 - 47.0 % BT MAIN-STATION 2 MCV 89 82 - 92 fL BT MAIN-STATION 2 MCH 29.8 27.0 - 32.0 pg BT MAIN-STATION 2 MCHC 33.5 32.0 - 36.0 g/dL BT MAIN-STATION 2 RDW 45.7 36.4 - 46.3 fL BT MAIN-STATION 2 Platelets 244 150 - 400 K/uL BT MAIN-STATION 2 Mean Platelet 11.6 9.4 - 12.4 fL BT MAIN-STATION Volume 2 Percent NRBC 0.0 BT MAIN-STATION 2 Absolute NRBC 0.00 BT MAIN-STATION 2 Neutrophils 70.0 34.0 - 70.0 % BT MAIN-STATION 2 Lymphs 22.7 20.0 - 50.0 % BT MAIN-STATION 2 Monocytes 5.3 5.0 - 12.0 % BT MAIN-STATION 2 Eos 1.5 0.7 - 5.0 % BT MAIN-STATION 2 Basos 0.4 0.1 - 1.2 % BT MAIN-STATION 2 Immature 0.1 0.0 - 0.5 BT MAIN-STATION Granulocytes 2 Neutrophils 5.05 1.56 - 6.13 K/uL BT MAIN-STATION (Absolute) 2 Lymphs 1.64 1.18 - 3.74 K/uL BT MAIN-STATION (Absolute) 2 Monocytes(Absol 0.38 (H) 0.24 - 0.36 K/uL BT MAIN-STATION dean) 2 Eos (Absolute) 0.11 0.04 - 0.36 K/uL BT MAIN-STATION 2 Baso (Absolute) 0.03 0.01 - 0.08 K/uL BT MAIN-STATION 2 Immature Grans 0.01 0.00 - 0.03 K/uL BT MAIN-STATION (Abs) 2 Specimen Blood Performing Organization Address City/State/Zipcode Phone Number MISYS BT MAIN-STATION 2 * UREA NITROGEN/CREA (07/04/2018 1:59 PM CDT) BUN 18 7 - 25 mg/dL BT MAIN-STATION 1 Creatinine 0.60 0.6 - 1.2 mg/dL BT MAIN-STATION 1 GFR, Estimated >60 mL/min/1.73 m2 BT MAIN-STATION 1 eGFR If Africn >60 mL/min/1.73 m2 BT MAIN-STATION Am 1 Specimen Other (Specify in Comments) Performing Organization Address City/State/Zipcode Phone Number MISYS BT MAIN-STATION 1 * VIT D, 25-HYDROXY (05/03/2018 10:58 AM CDT) Only the most recent of 2 results within the time period is included. Vit D, 34.0 30 - 100 ng/mL BT DIAGNOSTIC 25-Hydroxy Comment: IMMUNOLOGY Vitamin D deficiency has been defined by the [place] of [employer] and Endocrine Society guideline as a level of serum 25-OH Vitamin D less than 20 ng/mL. The Endocrine Society further defines Vitamin D insufficiency as a level between 21 and 29 ng/mL and sufficiency as a level between 30 and 100 ng/mL. Specimen Performing Organization Address City[facility] Phone Number MISYS BT DIAGNOSTIC IMMUNOLOGY * COMPREHENSIVE METABOLIC PANEL(DBIL NOT INCLUDED) (05/03/2018 10:58 AM CDT) Only the most recent of 2 results within the time period is included. Albumin 4.6 3.7 - 5.3 g/dL BT MAIN-STATION 1 Calcium 9.0 8.6 - 10.3 mg/dL BT MAIN-STATION 1 CO2 31 21 - 31 mmol/L BT MAIN-STATION 1 Chloride 99 98 - 107 mmol/L BT MAIN-STATION 1 Creatinine 0.50 (L) 0.6 - 1.2 mg/dL BT MAIN-STATION 1 Glucose 84 70 - 110 mg/dL BT MAIN-STATION 1 Alkaline 90 34 - 104 U/L BT MAIN-STATION Phosphatase, S 1 Potassium 4.6 3.5 - 5.1 mmol/L BT MAIN-STATION 1 Sodium 139 136 - 145 mmol/L BT MAIN-STATION 1 ALT 66 (H) 7 - 52 U/L BT MAIN-STATION 1 AST (SGOT) 55 (H) 13 - 39 U/L BT MAIN-STATION 1 BUN 7 7 - 25 mg/dL BT MAIN-STATION 1 Bilirubin, 0.6 0.2 - 1.2 mg/dL BT MAIN-STATION Total 1 Protein, Total, 8.1 6.0 - 8.3 g/dL BT MAIN-STATION Serum 1 GFR, Estimated >60 mL/min/1.73 m2 BT MAIN-STATION 1 eGFR If Africn >60 mL/min/1.73 m2 BT MAIN-STATION Am 1 Anion Gap 9 BT MAIN-STATION 1 Specimen Blood Performing Organization Address [facility] Phone [facility] * CCP IGG ABS (05/03/2018 10:58 AM CDT) CCP Abs IgG/IgA 9 LABORATORY Reference range: 0 to 19 CORPORATION OF Unit: units [place] (note) Negative <20 Weak [id number] - 39 Moderate [id number] - 59 Strong positive>59 Specimen Blood Performing Organization Address [facility] Phone Number [facility] [address] [facility] [place] [address] [place] 145 * HEPATITIS PANEL (05/03/2018 10:58 AM CDT) HCV IgG Negative NEG BT MAIN-STATION 3 HBsAg Negative NEG BT MAIN-STATION 3 HAV, IgM Negative NEG BT MAIN-STATION 3 HBcAb, IgM Negative NEG BT MAIN-STATION 3 Specimen Blood Performing Organization Address [facility] Phone Number [facility] 3 * OPAL (05/03/2018 10:58 AM CDT) OPAL Screen Positive (A) NEG BT DIAGNOSTIC IMMUNOLOGY OPAL Pattern SSA/Ro present, not titered Pattern BT DIAGNOSTIC IMMUNOLOGY Specimen Performing Organization Address [facility] Phone Number [facility] * XRAY CHEST 2 VIEWS (05/03/2018 10:34 AM CDT) Specimen Impressions Performed At IMPRESSION: SMS 1.Persistent mild right medial infrahilar opacities, likely atelectasis/scarring. 2.No consolidations, cavitary lesions, pleural effusions. CT could be obtained for further evaluation if indicated. Dictated By: Tay Paul MD, 05/03/2018 11:45 AM I have reviewed the study and agree with the findings in this report. Signed By: Jose Negron MD, 05/03/2018 11:46 AM Narrative Performed At EXAMINATION:XRAY CHEST 2 VIEWS SMS INDICATION: screen tb COMPARISON:06/24/2012 FINDINGS: Devices, Lines, [...] anterior osteophytosis of the mid thoracic spine. Procedure Note Tono, Rad/Mammog In - 05/03/2018 11:52 AM CDT EXAMINATION: XRAY CHEST 2 VIEWS INDICATION: screen tb [...] By: Jose Negron MD, 05/03/2018 11:46 AM Performing Organization Address City/State/Zipcode Phone Number SMS * XRAY SHOULDER 2 VIEWS MIN (05/03/2018 10:34 AM CDT) Only the most recent of 2 results within the time period is included. Specimen Impressions Performed At IMPRESSION: SMS 1.No acute radiographic abnormality. 2.Calcific tendinopathy of the rotator cuff. Dictated By: Radha Keating MD, 05/03/2018 11:40 AM I have reviewed the study and agree with the findings in this report. Signed By: Rafael Baker DO, 05/03/2018 2:54 PM Narrative Performed At EXAM: RIGHT XRAY SHOULDER 2 VIEWS MIN SMS CLINICAL INDICATION:pain COMPARISON: None. DISCUSSION: No fracture or dislocation. Mild degenerative changes of the shoulder and acromioclavicular joint. Calcific tendinopathy the rotator cuff. Procedure Note Tono Rad/Mammog In - 05/03/2018 2:59 PM CDT EXAM: RIGHT XRAY SHOULDER 2 VIEWS MIN [...] By: Rafael Baker DO, 05/03/2018 2:54 PM Performing Organization Address [facility] Phone Number SMS * XRAY SPINE LUMBOSACRAL AP-LAT (05/03/2018 10:34 AM CDT) Specimen Impressions Performed At IMPRESSION: SMS 1.No acute radiographic abnormality. 2.Mild degenerative changes at L5-S1. Dictated By: Radha Keating MD, 05/03/2018 11:38 AM I have reviewed the study and agree with the findings in this report. Signed By: Rafael Baker DO, 05/03/2018 2:54 PM Narrative Performed At Lumbar Spine Radiographs - 3 view(s) [facility] HISTORY:back pain COMPARISON: None DISCUSSION: Bone: Osseous structures are partially obscured by stool and bowel gas. Five nonrib-bearing lumbar vertebral bodies. Normal alignment. No displaced fracture or compression deformity. Discs: Mild disc space narrowing at L5-S1. Joints: Mild degenerative changes of the L5-S1 facets. Procedure Note Interface, Rad/Mammog In - 05/03/2018 2:59 PM CDT Lumbar Spine Radiographs - 3 view(s) HISTORY: back [...] By: Rafael Baker DO, 05/03/2018 2:54 PM Performing Organization Address [facility] Phone Number SMS * TSH (03/29/2018 4:08 PM CDT) TSH 1.87 0.57 - 3.74 uIU/mL BT MAIN-STATION 1 Specimen Blood Performing Organization Address [facility] Phone Number MISYS BT MAIN-STATION 1 after 02/12/2018 Insurance Type Payer Benefit Subscriber ID Effective Phone Address Plan / Dates Group PENDING PENDING xxxxxxxx 2010-P [phone] [id number] [place] [address] [facility] ZURITA xxxxxxxxxx 2018-7 [address] [id number] [place] [address] [employer] ZURITA xxxxxxxxxx 2017-P [phone] [address] [address] [place] [address]
--- OUTSIDE RECORDS SUMMARY | 2019-03-18 08:52 | XMS REPORT ---
Author Author Tierra Mcmahon Organization [employer] Address Unknown Phone Unavailable Care Team Providers Care Computing Tutor Name Role Phone Tierra Mcmahon Unavailable Allergies, Adverse Reactions, Alerts Substance Reaction Event Type N.K.D.A. Info Not Available Non Drug Allergy Encounters Encounter Location Date WWE [facility] Sep 01, 2014 SS STUDY QUESTIONAIRE [facility] Sep 12, 2014 LAB RESULTS [facility] Sep 12, 2014 Unknown [facility] Oct 07, 2014 LEFT KNEE PAIN/ SWELLLING [facility] Jul 02, 2014 physical, wwe [facility] Sep 02, 2015 Needs call back from Medical Staff [facility] Jul 03, 2014 Dizziness, loosing balance when trying to stand up [facility] November 23, 2015 Needs referral [facility] Jul 09, 2014 insomnia and stress, headaches [facility] Aug 31, 2015 H A/ SORE THROAT [facility] December 26, 2014 left eye [facility] January 23, 2015 Problems Problem Type Condition ICD-9 Code Onset Dates Condition Status Problem Anxiety 300.00 Active Problem Vitamin d deficiency 268.9 Active Problem Hyperlipidemia 272.4 Active Problem Menopause Z78.0 Active Problem Insomnia G47.00 Active Problem Vitamin D deficiency E55.9 Active Problem History of abnormal Pap smear V13.29 Active Problem Positive OPAL (antinuclear antibody) 795.79 Active Problem Depression F32.9 Active Problem Anxiety F41.9 Active Assessment Vertigo R42 Active Assessment Dizziness R42 Active Assessment Menorrhagia N92.0 Active Problem BMI 31.0-31.9,adult V85.31 Active Problem Obesity 278.00 Active Problem Spondyloarthropathy 721.90 Active Problem Insomnia 307.41 Active Problem Depression 311 Active Problem Prediabetes 790.29 Active Medications Medication Code System Code Instructions Start Date End Date Status Dosage Mirtazapine MEDISPAN [address]-45 45 Active 1 tablet before bedtime in the evening Venlafaxine HCl ER [facility] [address]-64 75 mg Orally Once a day Active 1 capsule with food HydrOXYzine HCl [facility] [address]-93 50 mg Orally at hour of sleep Aug 31, 2015 Active 1 tablet as needed Melatonin [facility] [address]-82 3 MG Orally Active 1 capsule at bedtime as needed with food Social History Social History Element Qualifiers Date Reported Last Colonoscopy: . 08/23/14 November 23, 2015 Ethnicity . Status , Is estonian your primary language? No croatian November 23, 2015 children . 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
--- OUTSIDE RECORDS SUMMARY | 2019-03-18 08:55 | XMS REPORT | Clinical Summary ---
Author Author [facility] Organization [facility] Address Unknown Phone Unavailable Care Team Providers Care Recording Clerk Name Role Phone PCP Unavailable Allergies No Known Allergies Current Medications Prescription Sig. Disp. Refills Start End Date Status Date levothyroxine (SYNTHROID) 01/18/20 Active 50 mcg tablet 18 folic acid (FOLVITE) 1 mg Take 1 tablet by mouth 90 tablet 3 04/27/20 Active tabletIndications: daily. 18 Inflammatory arthritis Cyclobenzaprine Take 1 tablet by mouth 30 tablet 1 04/27/20 Active (FLEXERIL) 5 mg nightly at bedtime as 18 tabletIndications: Low needed for Muscle Spasms. back pain at multiple sites naproxen (NAPROSYN) 250 Take 1 tablet by mouth 2 60 tablet 4 04/27/20 Active mg tabletIndications: times daily (with meals). 18 Arthralgia of shoulder, unspecified laterality, Low back pain at multiple sites hydroxychloroquine Take 1 tablet by mouth 90 tablet 3 06/25/20 Active (PLAQUENIL) 200 mg daily. 18 tabletIndications: Systemic lupus erythematosus, unspecified SLE type, unspecified organ involvement status, Sjogren's syndrome with keratoconjunctivitis sicca traZODone (DESYREL) 50 mg Take 50 mg by mouth at Active tablet bedtime nightly. methotrexate (RHEUMATREX) Take 1 tablet by mouth 72 tablet 0 07/19/20 Active 2.5 mg tabletIndications: weekly. 18 Medication refill citalopram (CELEXA) 40 mg Take 1 tablet by mouth 30 tablet 1 07/20/20 09/18/19 Active tabletIndications: MDD daily for 60 days. 18 19 (major depressive disorder), recurrent episode, moderate traZODone (DESYREL) 100 Take 2 tablets by mouth 60 tablet 1 07/20/20 09/18/19 Active mg tabletIndications: MDD at bedtime nightly for 60 18 19 (major depressive days. disorder), recurrent episode, moderate METRONIDAZOLE 500 MG TAB take 1 tablet (500 mg) by 04/27/20 Discontin oral route every 8 hours 18 ued CIPROFLOXACIN 500 MG TAB take 1 tablet (500 mg) by 04/27/20 Discontin oral route every 12 hours 18 ued PREVACID 30 MG take 1 capsule (30 mg) by 30 6 03/16/20 04/27/20 Discontin CAPIndications: Reflux oral route once daily 10 18 ued before a meal amitriptyline (ELAVIL) 25 Take 2 tablets by mouth 60 tablet 1 02/16/20 07/20/20 Discontin mg tabletIndications: at bedtime nightly. 18 18 ued Insomnia, unspecified type methotrexate (RHEUMATREX) Take 6 tablets by mouth 24 tablet 4 04/27/20 06/25/20 Discontin 2.5 mg tabletIndications: weekly. 18 18 ued Inflammatory arthritis citalopram (CELEXA) 20 mg Take 20 mg by mouth 07/20/20 Discontin tablet daily. 18 ued Active Problems No known active problems Encounters Date Type Specialty Care Team Description 07/23/2018 Hospital Radiology Chani Rogers MD Encounter 07/20/2018 Office Visit Psychiatry Delaney Reyes MD MDD (major depressive Chani Rogers MD disorder), recurrent episode, moderate (Primary Dx) 07/20/2018 Orders Only Psychiatry Delaney Reyes MD MDD (major depressive disorder), recurrent episode, moderate 07/20/2018 Telephone Yaya Gonzalez Interpretation 07/18/2018 Refill Family Practice Aracely Ayala LVN Medication refill (Primary Dx) 06/25/2018 Office Visit Rheumatology Chani Rogers MD Systemic lupus erythematosus, unspecified SLE type, unspecified organ involvement status (Primary Dx); Inflammatory arthritis; Urticaria, unspecified; Bilateral calcific tendinitis of shoulders; Abnormal chest x-ray; DDD (degenerative disc disease), lumbar; Abnormal LFTs; Sjogren's syndrome with keratoconjunctivitis sicca; Adjustment disorder with depressed mood 05/03/2018 Ancillary Radiology Leigh Ann Correa MD Procedure 04/27/2018 Office Visit Rheumatology Chani Rogers MD Systemic lupus erythematosus, unspecified SLE type, unspecified organ involvement status (Primary Dx); Inflammatory arthritis; Dietary counseling for Above / Below Normal BMI; Exercise counseling for Above Normal BMI Only!; BMI 34.0-34.9,adult; Arthralgia of shoulder, unspecified laterality; Low back pain at multiple sites; Screening for tuberculosis 04/17/2018 Refill Psychiatry Kathy Nettles MD Insomnia, unspecified type 03/29/2018 Office Visit Psychiatry Kathy Nettles MD Patient left without being seen (Primary Dx) 03/29/2018 Hospital Lab Kathy Nettles MD Insomnia, unspecified Encounter type; MDD (major depressive disorder), recurrent episode, moderate 02/15/2018 Office Visit Psychiatry Kathy Nettles MD MDD (major depressive disorder), recurrent episode, moderate (Primary Dx); Insomnia, unspecified type 02/15/2018 Telephone Courtney Riley Interpretation after 07/25/2017 Social History Tobacco Use Types Packs/Day Years Used Date Never Smoker Smokeless Tobacco: Never Used Tobacco Cessation: Counseling Given: Yes Alcohol Use Drinks/Week oz/Week Comments Yes occasional Sex Assigned at Date Recorded Not on file Last Filed Vital Signs Vital Sign Reading Time Taken Blood Pressure 99/46 07/20/2018 9:08 AM [employer] Pulse 58 07/20/2018 9:08 AM [employer] Temperature 36.8 C (98.3 F) 07/20/2018 9:08 AM [employer] Respiratory Rate 18 07/20/2018 9:08 AM [employer] Oxygen Saturation 96% 03/29/2018 2:58 PM CDT Inhaled Oxygen - - Concentration Weight 78 kg (172 lb) 07/20/2018 9:08 AM [employer] Height 154.9 cm (5' 1") 07/20/2018 9:08 AM [employer] Body Mass Index 32.5 07/20/2018 9:08 AM [employer] Plan of Treatment Date Type Specialty Care Team Description 08/22/2018 Appointment Chani Rogers MD full pft 6mwt [address] [place] [address] 2018 Office Visit Psychiatry Delaney Reyes MD [facility] [address] [place], [place] [phone] Office Visit Psychology Delaney Reyes MD Dept[facility]iatry[facility] [address] [place], [place] [id number] Maria Del Rosario Toribio [address] [place], [place] [phone] 09/17/2018 Office Visit Rheumatology Colon-Chani Fuller MD [address] [place], [place] [phone] Health Maintenance Due Date Last Done Comments Cervical Cancer Scrn (3 1983 Yrs) Breast Cancer Scrn 2002 (Yearly) Colorectal Cancer Scrn 2012 02/11/2010 Annual (FIT/FOBT) Age 50 to 75 IMM Influenza Seasonal 06/04/2018Jun to November (>/=19 yrs) Procedures Procedure Name Priority Date/Time Associated Diagnosis Comments CT CHEST W CONTRAST Routine 07/23/2018 Systemic lupus Results for this 10:01 AM [employer] erythematosus, procedure are in the unspecified SLE type, results section. unspecified organ involvement status Abnormal chest x-ray UREA NITROGEN/CREA Routine 07/04/2018 Systemic lupus Results for this 1:59 PM CDT erythematosus, procedure are in the unspecified SLE type, results section. unspecified organ involvement status ANTI DSDNA BY CRITHIDIA Routine 07/04/2018 Systemic lupus Results for this 1:59 PM CDT erythematosus, procedure are in the unspecified SLE type, results section. unspecified organ involvement status C-REACTIVE PROT Routine 07/04/2018 Systemic lupus Results for this 1:59 PM CDT erythematosus, procedure are in the unspecified SLE type, results section. unspecified organ involvement status RA FACTOR Routine 07/04/2018 Sjogren's syndrome with Results for this 1:59 PM CDT keratoconjunctivitis procedure are in the sicca results section. SJOGREN'S AB Routine 07/04/2018 Sjogren's syndrome with Results for this 1:59 PM CDT keratoconjunctivitis procedure are in the sicca results section. CBC/DIFF Routine 07/04/2018 Systemic lupus Results for this 1:59 PM CDT erythematosus, procedure are in the unspecified SLE type, results section. unspecified organ involvement status LIVER PROFILE Routine 07/04/2018 Systemic lupus Results for this 1:59 PM CDT erythematosus, procedure are in the unspecified SLE type, results section. unspecified organ involvement status COMPLEMENT C3 Routine 07/04/2018 Systemic lupus Results for this 1:59 PM CDT erythematosus, procedure are in the unspecified SLE type, results section. unspecified organ involvement status COMPLEMENT C4 Routine 07/04/2018 Systemic lupus Results for this 1:59 PM CDT erythematosus, procedure are in the unspecified SLE type, results section. unspecified organ involvement status OPAL Routine 05/03/2018 Results for this 10:58 AM CDT procedure are in the results section. T PROT/CREA RATIO,UR Routine 05/03/2018 Systemic lupus Results for this 10:58 AM CDT erythematosus, procedure are in the unspecified SLE type, results section. unspecified organ involvement status VIT D, 25-HYDROXY Routine 05/03/2018 Inflammatory arthritis Results for this 10:58 AM CDT procedure are in the results section. CCP IGG ABS Routine 05/03/2018 Systemic lupus Results for this 10:58 AM CDT erythematosus, procedure are in the unspecified SLE type, results section. unspecified organ involvement status COMPLEMENT C4 Routine 05/03/2018 Systemic lupus Results for this 10:58 AM CDT erythematosus, procedure are in the unspecified SLE type, results section. unspecified organ involvement status COMPLEMENT C3 Routine 05/03/2018 Systemic lupus Results for this 10:58 AM CDT erythematosus, procedure are in the unspecified SLE type, results section. unspecified organ involvement status ANTI DSDNA BY CRITHIDIA Routine 05/03/2018 Systemic lupus Results for this 10:58 AM CDT erythematosus, procedure are in the unspecified SLE type, results section. unspecified organ involvement status C-REACTIVE PROT Routine 05/03/2018 Systemic lupus Results for this 10:58 AM CDT erythematosus, procedure are in the unspecified SLE type, results section. unspecified organ involvement status CBC/DIFF Routine 05/03/2018 Inflammatory arthritis Results for this 10:58 AM CDT procedure are in the results section. COMPREHENSIVE METABOLIC Routine 05/03/2018 Inflammatory arthritis Results for this PANEL(DBIL NOT INCLUDED) 10:58 AM CDT procedure are in the results section. HEPATITIS PANEL Routine 05/03/2018 Inflammatory arthritis Results for this 10:58 AM CDT procedure are in the results section. XRAY SHOULDER 2 VIEWS MIN Routine 05/03/2018 Arthralgia of shoulder, Results for this 10:34 AM CDT unspecified laterality procedure are in the results section. XRAY SHOULDER 2 VIEWS MIN Routine 05/03/2018 Arthralgia of shoulder, Results for this 10:34 AM CDT unspecified laterality procedure are in the results section. XRAY CHEST 2 VIEWS Routine 05/03/2018 Screening for Results for this 10:34 AM CDT tuberculosis procedure are in the results section. XRAY SPINE LUMBOSACRAL Routine 05/03/2018 Low back pain at multiple Results for this AP-LAT 10:34 AM CDT sites procedure are in the results section. VIT D, 25-HYDROXY Routine 03/29/2018 Insomnia, unspecified Results for this 4:08 PM CDT type procedure are in the MDD (major depressive results section. disorder), recurrent episode, moderate COMPREHENSIVE METABOLIC Routine 03/29/2018 Insomnia, unspecified Results for this PANEL(DBIL NOT INCLUDED) 4:08 PM CDT type procedure are in the results section. CBC/DIFF Routine 03/29/2018 Insomnia, unspecified Results for this 4:08 PM CDT type procedure are in the results section. TSH Routine 03/29/2018 Insomnia, unspecified Results for this 4:08 PM CDT type procedure are in the results section. after 07/25/2017 Results * CT CHEST W CONTRAST (07/23/2018 10:01 AM) Impressions Performed At IMPRESSION: SMS 1.Lungs are [...] Interface, Rad/Mammog In - 07/23/2018 10:43 AM [employer] EXAM: CT CHEST W CONTRAST DATE: 07/23/2018 [...] M.D., 07/23/2018 10:38 AM Performing Organization Address [facility] Phone Number SMS * SJOGREN'S AB (07/04/2018 1:59 PM) Anti SS/A >8.0 LABORATORY Reference range: 0.0 to 0.9 CORPORATION OF Unit: AI EDUARDO Anti SS/B >8.0 LABORATORY Reference range: 0.0 to 0.9 CORPORATION OF Unit: AI EDUARDO Specimen Blood bag - BLOOD Performing Organization Address [facility] Phone Number [employer] [address] [facility], [place] [address] EDUARDO 145 * RA FACTOR (07/04/2018 1:59 PM) RA Factor 12 <14 IU/mL BT MAIN-STATION 1 Specimen Blood Performing Organization Address [facility] Phone Number [employer] BT MAIN-STATION 1 * LIVER PROFILE (07/04/2018 1:59 PM) T Protein 8.2 6.0 - 8.3 g/dL BT MAIN-STATION 1 Albumin 4.3 3.7 - 5.3 g/dL BT MAIN-STATION 1 T Bilirubin 0.5 0.2 - 1.2 mg/dL BT MAIN-STATION 1 Alk Phos 111 (H) 34 - 104 U/L BT MAIN-STATION 1 AST 27 13 - 39 U/L BT MAIN-STATION 1 ALT 26 7 - 52 U/L BT MAIN-STATION 1 D Bilirubin 0.1 0.0 - 0.2 mg/dL BT MAIN-STATION 1 Specimen Blood Performing Organization Address [facility] Phone Number MISYS MAIN-STATION 1 * ANTI DSDNA BY CRITHIDIA (07/04/2018 1:59 PM) Only the most recent of 2 results within the time period is included. Anti dsDNA Negative NEG Titer BT DIAGNOSTIC IMMUNOLOGY Specimen Blood Performing Organization Address [facility] Phone Number [facility] DIAGNOSTIC IMMUNOLOGY * C-REACTIVE PROT (07/04/2018 1:59 PM) Only the most recent of 2 results within the time period is included. C-Reactive Prot 0.7 <10 mg/dL BT MAIN-STATION 1 Performing Organization Address [facility] Phone Number [employer]IS[employer] BT MAIN-STATION 1 * CBC/DIFF (07/04/2018 1:59 PM) Only the most recent of 3 results within the time period is included. WBC 7.2 4.5 - 11.0 K/uL BT [...] 36.4 - 46.3 fL BT MAIN-STATION 2 Platelet 244 150 - 400 K/uL BT MAIN-STATION 2 Mean Platelet Volume 11.6 9.4 - 12.4 fL BT MAIN-STATION 2 Percent NRBC 0.0 BT MAIN-STATION 2 Absolute NRBC 0.00 BT MAIN-STATION 2 Neutrophil 70.0 34.0 - 70.0 % BT MAIN-STATION 2 Lymphocyte 22.7 20.0 - 50.0 % BT MAIN-STATION 2 Monocyte 5.3 5.0 - 12.0 % BT MAIN-STATION 2 Eosinophil 1.5 0.7 - 5.0 % BT MAIN-STATION 2 Basophil 0.4 0.1 - 1.2 % BT MAIN-STATION 2 Pct Immat Gran 0.1 0.0 - 0.5 BT MAIN-STATION 2 Neutrophil, Abs 5.05 1.56 - 6.13 K/uL BT MAIN-STATION 2 Lymphocyte, Abs 1.64 1.18 - 3.74 K/uL BT MAIN-STATION 2 Monocyte, Abs 0.38 (H) 0.24 - 0.36 K/uL BT MAIN-STATION 2 Eosinophil, Abs 0.11 0.04 - 0.36 K/uL BT MAIN-STATION 2 Basophil, Abs 0.03 0.01 - 0.08 K/uL BT MAIN-STATION 2 Absol Immat Gran 0.01 0.00 - 0.03 K/uL BT MAIN-STATION 2 Specimen Blood Performing Organization Address [facility] Phone Number [employer] BT MAIN-STATION 2 * COMPLEMENT C4 (07/04/2018 1:59 PM) Only the most recent of 2 results within the time period is included. Complement C4 41.0 19 - 52 mg/dL BT MAIN-STATION 1 Specimen Blood Performing Organization Address City/[facility] Phone Number [employer] BT MAIN-STATION 1 * COMPLEMENT C3 (07/04/2018 1:59 PM) Only the most recent of 2 results within the time period is included. Complement C3 175.4 87 - 200 mg/dL BT MAIN-STATION 1 Specimen Blood Performing Organization Address City/[facility] Phone Number [facility] BT MAIN-STATION 1 * UREA NITROGEN/CREA (07/04/2018 1:59 PM) Urea Nitrogen 18 7 - 25 mg/dL BT MAIN-STATION 1 Creatinine 0.60 0.6 - 1.2 mg/dL BT MAIN-STATION 1 GFR, Estimated >60 mL/min/1.73 m2 BT MAIN-STATION 1 GFR, Estim, Afr-Am >60 mL/min/1.73 m2 BT MAIN-STATION 1 Specimen Other (Specify in Comments) Performing Organization Address City/State/Zipcode Phone Number MISYS BT MAIN-STATION 1 * VIT D, 25-HYDROXY (05/03/2018 10:58 AM) Only the most recent of 2 results within the time period is included. Vit D, 25-Hydroxy 34.0 30 - 100 ng/mL BT DIAGNOSTIC Comment: IMMUNOLOGY Vitamin D deficiency has been defined by the [place] of Medicine and Endocrine Society guideline as a level of serum 25-OH Vitamin D less than 20 ng/mL. The Endocrine Society further defines Vitamin D insufficiency as a level between 21 and 29 ng/mL and sufficiency as a level between 30 and 100 ng/mL. Performing Organization Address City/State/[facility] Phone Number MISYS BT DIAGNOSTIC IMMUNOLOGY * COMPREHENSIVE METABOLIC PANEL(DBIL NOT INCLUDED) (05/03/2018 10:58 AM) Only the most recent of 2 results [...] 70 - 110 mg/dL BT MAIN-STATION 1 Alk Phos 90 34 - 104 U/L BT MAIN-STATION 1 Potassium 4.6 3.5 - 5.1 mmol/L BT MAIN-STATION 1 Sodium 139 136 - 145 mmol/L BT MAIN-STATION 1 ALT 66 (H) 7 - 52 U/L BT MAIN-STATION 1 AST 55 (H) 13 - 39 U/L BT MAIN-STATION 1 Urea Nitrogen 7 7 - 25 mg/dL BT MAIN-STATION 1 T Bilirubin 0.6 0.2 - 1.2 mg/dL BT MAIN-STATION 1 T Protein 8.1 6.0 - 8.3 g/dL BT MAIN-STATION 1 GFR, Estimated >60 mL/min/1.73 m2 BT MAIN-STATION 1 GFR, Estim, Afr-Am >60 mL/min/1.73 m2 BT MAIN-STATION 1 Anion Gap 9 BT MAIN-STATION 1 Specimen Blood Performing Organization Address [facility] Phone Number [facility] BT MAIN-STATION 1 * CCP IGG ABS (05/03/2018 10:58 AM) CCP Abs IgG/IgA 9 LABORATORY Reference range: 0 to 19 CORPORATION OF Unit: units EDUARDO (note) Negative <20 Weak [id number] - 39 Moderate [id number] - 59 Strong positive>59 Specimen Blood Performing Organization Address [facility] Phone Number [facility] LABORATORY CORPORATION OF [address] [facility] [place] [address] EDUARDO 145 * T PROT/CREA RATIO,UR (05/03/2018 10:58 AM) Creatinine, Ur 114.2 20 - 320 mg/dL BT MAIN-STATION 1 T Prot, Ur 0.09 g/L BT MAIN-STATION 1 T Prot/Crea Ratio,Ur 0.08 0.0 - 0.5 BT MAIN-STATION 1 Specimen Urine Performing Organization Address [facility] Phone Number [facility] BT MAIN-STATION 1 * HEPATITIS PANEL (05/03/2018 10:58 AM) HCV IgG Negative NEG BT MAIN-STATION 3 HBsAg Negative NEG BT MAIN-STATION 3 HAV, IgM Negative NEG BT MAIN-STATION 3 HBcAb, IgM Negative NEG BT MAIN-STATION 3 Specimen Blood Performing Organization Address [facility] Phone Number [facility] BT MAIN-STATION 3 * OPAL (05/03/2018 10:58 AM) OPAL Screen Positive (A) NEG BT DIAGNOSTIC IMMUNOLOGY OPAL Pattern SSA/Ro present, not titered Pattern BT DIAGNOSTIC IMMUNOLOGY Performing Organization Address [facility] Phone Number [facility] BT DIAGNOSTIC IMMUNOLOGY * XRAY CHEST 2 VIEWS (05/03/2018 10:34 AM) Impressions Performed At IMPRESSION: SMS 1.Persistent mild [...] of the mid thoracic spine. Procedure Note Interface, Rad/Mammog In - 05/03/2018 11:52 AM CDT [...] XRAY SHOULDER 2 VIEWS MIN (05/03/2018 10:34 AM) Only the most recent of 2 results within the time period is included. Impressions Performed At IMPRESSION: SMS 1.No acute [...] Calcific tendinopathy the rotator cuff. Procedure Note Interface, Rad/Mammog In - 05/03/2018 [...] DO, 05/03/2018 2:54 PM Performing Organization Address City/State/Zipcode Phone Number SMS * XRAY SPINE LUMBOSACRAL AP-LAT (05/03/2018 10:34 AM) Impressions Performed At IMPRESSION: SMS 1.No acute radiographic abnormality. 2.Mild degenerative changes at L5-S1. Dictated By: Radha Keating MD, 05/03/2018 11:38 AM I have reviewed the study and agree with the findings in this report. Signed By: Rafael Baker DO, 05/03/2018 2:54 PM Narrative Performed At Lumbar Spine Radiographs - 3 view(s) [facility] HISTORY:back pain COMPARISON: None DISCUSSION: Bone: Osseous [...] the findings in this report. Signed By: Rafale Baker DO, 05/03/2018 2:54 PM Performing Organization Address [facility] Phone Number SMS * TSH (03/29/2018 4:08 PM) TSH 1.87 0.57 - 3.74 uIU/mL BT MAIN-STATION 1 Specimen Blood Performing Organization Address City/[facility] Phone Number [facility]IS[facility] BT MAIN-STATION 1 after 07/25/2017
--- OUTSIDE RECORDS SUMMARY | 2019-03-18 08:58 | XMS REPORT ---
[facility] Address Unknown Phone Unavailable Care Team Providers Care Electrolytic Etcher Name Role Phone Unavailable Unavailable Problems This patient has no known problems. Allergies, Adverse Reactions, Alerts This patient has no known allergies or adverse reactions. Medications This patient has no known medications. Encounters Start Date/Time End Date/Time Encounter Type Admission Type Attending [facility] Care Department Encounter ID 2019-02-22 00:00:00 2019-02-22 00:00:00 Outpatient [facility] [id number] 2019-02-11 00:00:00 2019-02-11 00:00:00 Outpatient [facility] [id number] 2018-12-18 09:28:55 2018-12-18 09:28:55 Outpatient [facility] [id number] 2018-12-14 08:35:35 2018-12-14 08:35:35 Outpatient [facility] [id number] 2018-12-14 00:00:00 2018-12-14 00:00:00 Outpatient [facility] [id number] 2018-12-07 00:00:00 2018-12-07 00:00:00 Outpatient [facility] [id number] 2018-11-02 00:00:00 2018-11-02 00:00:00 Outpatient [facility] [id number] 2018-09-17 10:45:27 2018-09-17 10:45:27 Outpatient [facility] [id number] 2018-09-17 09:58:27 2018-09-17 09:58:27 Outpatient [facility] [id number] 2018 13:29:23 2018 13:29:23 Outpatient [facility] [id number] 2018 13:13:53 2018 13:13:53 Outpatient [facility] [id number] 2018-09-07 00:00:00 2018-09-07 00:00:00 Outpatient [facility] [id number] 2018-08-31 00:00:00 2018-08-31 00:00:00 Outpatient [facility] [id number] 2018-08-31 00:00:00 2018-08-31 00:00:00 Outpatient [facility] [id number] 2018-08-31 00:00:00 2018-08-31 00:00:00 Outpatient [facility] [id number] 2018-08-22 07:53:53 2018-08-22 07:53:53 Outpatient [facility] [id number] 2018-07-30 00:00:00 2018-07-30 00:00:00 Outpatient [facility] [id number] 2018-07-30 00:00:00 2018-07-30 00:00:00 Outpatient [facility] [id number] 2018-07-30 00:00:00 2018-07-30 00:00:00 Outpatient [facility] [id number] 2018-07-23 08:19:47 2018-07-23 08:19:47 Outpatient [facility] [id number] 2018-07-20 09:08:44 2018-07-20 09:08:44 Outpatient [facility] [id number] 2018-07-12 00:00:00 2018-07-12 00:00:00 Outpatient [facility] [id number] 2018-07-04 14:03:53 2018-07-04 14:03:53 Outpatient [facility] [id number] 2018-06-25 11:03:06 2018-06-25 11:03:06 Outpatient [facility] [id number] 2018-05-08 00:00:00 2018-05-08 00:00:00 Outpatient [facility] [id number] 2018-05-08 00:00:00 2018-05-08 00:00:00 Outpatient [facility] [id number] 2018-05-03 11:00:31 2018-05-03 11:00:31 Outpatient [facility] [id number] 2018-05-03 10:20:58 2018-05-03 10:20:58 Outpatient [facility] [id number] 2018-05-02 00:00:00 2018-05-02 00:00:00 Outpatient [facility] [id number] 2018-05-02 00:00:00 2018-05-02 00:00:00 Outpatient [facility] [id number] 2018-04-30 00:00:00 2018-04-30 00:00:00 Outpatient [facility] [id number] 2018-04-27 11:49:20 2018-04-27 11:49:20 Outpatient [facility] [id number] 2018-03-29 15:42:27 2018-03-29 15:42:27 Outpatient [facility] [id number] 2018-03-29 14:58:07 2018-03-29 14:58:07 Outpatient [facility] [id number] 2018-02-15 15:10:59 2018-02-15 15:10:59 Outpatient [facility] [id number]
[2019-03-18 14:05] VITALS: BP 126/63
--- NOTE | 2019-03-18 15:41 | Operative Report ---
DATE OF PROCEDURE: 03/18/2019 SURGEON: Arun Evans MD PROCEDURES: EGD with biopsies and esophageal dilatation and colonoscopy. INDICATIONS: For EGD are dysphagia indications for colonoscopy Surveillance colonoscopy, personal history of colon polyps. MEDICATIONS: The patient was done under MAC. Please see anesthesiologist's note. DESCRIPTION OF PROCEDURE: With the patient in left lateral decubitus position, flexible fiberoptic Olympus gastroscope was introduced into the esophagus under direct visualization without any difficulty. There was some patchy erythema noted in distal esophagus. The scope was then advanced with ease into the stomach. Mucosa overlying the antrum and the body revealed some diffuse erythema and low-grade to moderate edema. Biopsies were obtained and sent to stain for H. pylori. The pylorus was of normal contour and shape, it was intubated with ease and the scope was advanced all the way to the second portion of the duodenum. Biopsies were obtained from the second portion as well as the duodenal bulb to rule out sprue. The scope was then withdrawn back into the stomach and retroflexed and an intact Nish fundoplication was noted. The scope was then straightened out, it was subsequently withdrawn. The esophagus was then dilated to size 52-Armenian Liu. The patient tolerated the procedure well. IMPRESSION: 1. Distal esophagitis, mild. 2. Esophageal stricture at GE junction dilated to size 52-Armenian Liu. 3. Status post Nish fundoplication. 4. Gastritis, biopsied, biopsies sent to stain for H. pylori. 5. Rule out sprue. PLAN: Follow up histology. Initiate Protonix 40 mg one p.o. q.a.m. a.c. DESCRIPTION OF PROCEDURE: The patient was then turned around after adequate lubrication of the anal canal, a flexible fiberoptic Olympus colonoscope was inserted into the rectum with ease and advanced all the way to the cecum, it was then withdrawn slowly. Mucosa overlying the cecum, ascending colon, transverse colon, descending, sigmoid, and rectum appeared to be within normal limits. The scope was then retroflexed into the distal rectum and small internal hemorrhoids were noted, none of which was actively bleeding. The scope was then straightened out, it was subsequently withdrawn. The patient tolerated the procedure well. IMPRESSION: Internal hemorrhoids, none actively bleeding. PLAN: Initiate high-fiber low-fat diet. Initiate high-fiber supplement. The patient might benefit from a followup colonoscopy in 5 years. MD JACK Orellana/CHULAL /[id number] cc: Sylvia Foster DO
== END | disposition home or self-care (01) ==
LOC: OR 08:36
PROVIDERS: ATTEND Internal Medicine Gastroenterology
DX: Z12.11 Encounter for screening for malignant neoplasm of colon (principal); Z86.010 Personal history of colon polyps; R13.10 Dysphagia, unspecified; I73.9 Peripheral vascular disease, unspecified; E03.9 Hypothyroidism, unspecified; F32.9 Major depressive disorder, single episode, unspecified; Z80.0 Family history of malignant neoplasm of digestive organs; Z87.11 Personal history of peptic ulcer disease; Z68.37 Body mass index [BMI] 37.0-37.9, adult; Z01.810 Encounter for preprocedural cardiovascular examination; K20.9 Esophagitis, unspecified; K22.2 Esophageal obstruction; K64.8 Other hemorrhoids; K29.50 Unspecified chronic gastritis without bleeding
CPT/HCPCS: 43239; 43450; 45378; 93005; J2250; J3010

== ENCOUNTER 2020-04-28 08:59 | Outpatient (RCR) | payer OTHER ==
[~2020-04-28 08:59] MED LIST changes: -FENTANYL CITRATE/PF 100MCG/2 ML INJ ONE; -HYOSCYAMINE 0.125 MG TAB ONE; -MIDAZOLAM HCL 2 MG/2 ML VIAL ONE
== END 2020-05-04 ==
LOC: PT 08:59
PROVIDERS: ATTEND Specialist
DX: S33.8XXD Sprain of other parts of lumbar spine and pelvis, subsequent encounter (principal); S76.812S Strain of other specified muscles, fascia and tendons at thigh level, left thigh, sequela; M54.32 Sciatica, left side; M62.81 Muscle weakness (generalized); R26.2 Difficulty in walking, not elsewhere classified

== ENCOUNTER 2020-06-02 09:00 | Outpatient (RCR) | payer OTHER | END 2020-06-03 | LOC: PT 09:00 | PROVIDERS: ATTEND Specialist | DX: S33.5XXA Sprain of ligaments of lumbar spine, initial encounter (principal); S76.812S Strain of other specified muscles, fascia and tendons at thigh level, left thigh, sequela; R26.2 Difficulty in walking, not elsewhere classified; M62.81 Muscle weakness (generalized); M54.32 Sciatica, left side; M53.86 Other specified dorsopathies, lumbar region | CPT/HCPCS: 97139 ==